=== PATIENT | male | born 1970 | race Caucasian/White ===

== ENCOUNTER 2017-06-10 18:41 | Inpatient (IN) | payer OTHER ==
[~2017-06-10] VITALS: Ht 182.9 cm; Wt 90.6 kg
--- NOTE | ~2017-06-10 | ER ---
PATIENT'S NAME: CÉSAR TURCIOS [facility] AGE: 47 Y [address] ROOM: [place] [address] LOCATION: GPCU ADMIT DATE: 06/10/2017 ER/Outpatient Report DISCHARGE DATE: FAMILY PHYSICIAN: Raheem Scott MD ATTENDING PHYSICIAN: Raheem Scott Time of Arrival: 1842 hours. Time of Evaluation: 1842 hours. CHIEF COMPLAINT: Chest pain. HISTORY OF PRESENT ILLNESS: The patient is a 47-year-old male who presents to the emergency department today with chief complaint of chest pain. He reports that he has not felt good for the past 3 to 4 days. He had some nausea and vomiting. About 6 hours prior to arrival while working in the yard, he developed some chest pain. It is in the center of his chest. He felt like indigestion and burning type pain. He reports some nausea. He did have vomiting x10 over the past few days. He does report some shortness of breath and diaphoresis. He reports pain is currently 8/10 in severity. PAST MEDICAL HISTORY: Seizure, dyslipidemia, hypertension, gastroesophageal reflux disease. PAST SURGICAL HISTORY: Bilateral shoulder surgery, left knee surgery, cholecystectomy. SOCIAL HISTORY: The patient denies any tobacco use. He reports daily alcohol use 3-4 beers a day. Denies any illicit drug use. ALLERGIES: NO KNOWN DRUG ALLERGIES. MEDICATIONS: Please see list. PRIMARY CARE DOCTOR: Raheem Scott MD. REVIEW OF SYSTEMS: All systems are reviewed by myself and are negative with the exception of those discussed in HPI and past medical history. PATIENT'S NAME: CÉSAR TURCIOS [facility] AGE: 47 Y [address] ROOM: [address] [address] LOCATION: GPCU ADMIT DATE: 06/10/2017 ER/Outpatient Report DISCHARGE DATE: FAMILY PHYSICIAN: Raheem Scott MD ATTENDING PHYSICIAN: Raheem Scott PHYSICAL EXAMINATION: VITAL SIGNS: Weight 89.6 kg. Blood pressure 157/100, pulse 120, respiratory rate 18, temperature 96.9, oxygen saturation 98% on room air. GENERAL: The patient is a 47-year-old male, who appears stated age. Well developed, well nourished. HEENT: Normocephalic, atraumatic. Pupils are equal, round, and reactive to light. Mild scleral icterus. Mucous membranes are dry. NECK: Supple. There is no nuchal rigidity. CARDIOVASCULAR: Tachycardic. No murmurs, rubs, or gallops. LUNGS: Clear to auscultation bilaterally. No wheezes, rales, or rhonchi. ABDOMEN: Soft. Does have mild diffuse tenderness to palpation. There is no rebound, rigidity, or guarding. Positive bowel sounds. MUSCULOSKELETAL: The patient moves all 4 extremities. SKIN: Warm and dry. No rashes or lesions noted. LABORATORY DATA AND IMAGING STUDIES: Labs and x-rays are obtained. EKG is obtained, is interpreted by myself at 1849 shows sinus tachycardia with a rate of 114, normal axis, normal interval. No ST elevation. There is ST depression, 0.5 mm in V5-V6. There is nonspecific T-waves. CBC is unremarkable except for hemoglobin 10.3, hematocrit 28.1, platelet 149, bands 25%. PTT is normal. PT is 13.4. INR is 1.27. Venous blood gas 7.50/36/40/28.1/4.8. D-dimer is elevated at 1.66. PTT is 32. PT is 13.4. INR is 1.27. CMP: Sodium 125, potassium 2.8, chloride 80, CO2 24, BUN 55, creatinine 9.1, glucose 135, alkaline phosphatase 350, AST 1373, [place] [address]. Procalcitonin is 45.15. Lipase is 3313. CK is 1574. CK-MB is 8.9. Troponin 5.12. Lactate is 5.4. Alcohol is less than 0.01. Repeat renal function panel shows sodium 127, potassium 2.7, chloride 82, BUN 56, creatinine 9.7. Repeat 2-hour enzymes; CK is 1402, CK-MB is 8.1, troponin 6.94. IMPRESSION: 1. Nft-VG-ptjjqntre myocardial infarction with elevated troponin and abnormal EKG. 2. Severe potomania syndrome with hyponatremia and hypokalemia. 3. Acute renal failure. 4. Acute pancreatitis. 5. Lactic acidosis. 6. Elevated liver enzymes. 7. Chronic alcohol abuse. PATIENT'S NAME: CÉSAR TURCIOS [facility] AGE: 47 Y [address] ROOM: [address] [place] [id number] LOCATION: GPCU ADMIT DATE: 06/10/2017 ER/Outpatient Report DISCHARGE DATE: FAMILY PHYSICIAN: Raheem Scott MD ATTENDING PHYSICIAN: Raheem Scott 8. Elevated D-dimer. 9. Critical care time of 33 minutes. 10. Initial visit. EMERGENCY DEPARTMENT COURSE: The patient brought back to the examination room. Seen and evaluated by myself. IV is established. Laboratory analysis and imaging are obtained as described above. The patient is given aspirin orally. His EKG, laboratory analysis and imaging are returned. The patient is given a liter of normal saline IV bolus. He is given 4 mg Zofran IV. He is given 2 mg of morphine IV. He is given a banana bag 1 L IV. He is given 60 mEq of potassium chloride p.o. He is also given 20 mEq of potassium chloride IV. He is initiated on heparin drip. I have discussed the case with Dr. Callahan, who is on-call for the patient's primary care doctor. He does agree to accept the patient for further evaluation, treatment, and management. I have discussed the case with Dr. Abarca with Cardiology. He has seen and evaluated the patient here in the emergency department. We will place the patient on heparin drip. We have also discussed the case with Dr. Harry. He has seen and evaluated the patient as well. Please see their dictations. The patient did undergo a stat echocardiogram which does show left ventricular EF of 25% to 30% with moderate to severe concentric left ventricular hypertrophy with severe diastolic dysfunction. Repeat cardiac enzymes show CK of 1402, CK-MB of 8.1, troponin 6.94. The patient will be admitted under the care of Dr. Callahan. The patient did require cumulative critical care time of 33 minutes. This did include talking with the patient, talking with multiple consultants, ordering tests, reviewing tests as well as close monitoring with multiple comorbidities and multiple acute issues. DISPOSITION: The patient is admitted under the care of Dr. Callahan and consultation with Dr. Abarca and Piero in stable condition. DO VARUN STOCKTON/modl /[id number] d: 06/11/17 0152 t: 06/11/17 0208, OUTPATIENT REPORT
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
--- NOTE | ~2017-06-10 | CON ---
PATIENT'S NAME: CÉSAR TURCIOS [facility] AGE: 47 Y [address] ROOM: [place] [address] LOCATION: GPCU ADMIT DATE: 06/10/2017 Consultation DISCHARGE DATE: FAMILY PHYSICIAN: Raheem Scott MD ATTENDING PHYSICIAN: Raheem Scott REFERRING PHYSICIAN: Talia Harry COMPLAINT: Bleeding dialysis catheter. HISTORY OF PRESENT ILLNESS: The patient is a 47-year-old male who was admitted with chest pain, pancreatitis, and renal failure. He had had a dialysis catheter placed that has been bleeding overnight. They had tried multiple things to stop this. I have been asked to help control the bleeding. His hemoglobin is 7.3. PAST MEDICAL HISTORY: 1. Anxiety. 2. Hyperlipidemia. 3. Alcohol abuse. PAST SURGICAL HISTORY: 1. Right shoulder surgery. 2. Right knee. 3. Cholecystectomy. SOCIAL HISTORY: . Three children. Currently unemployed. ALLERGIES: NONE KNOWN. CURRENT MEDICATIONS: See current MAR. REVIEW OF SYSTEMS: Denies chest pain or shortness of breath. He has overall been feeling poorly. PHYSICAL EXAMINATION: GENERAL APPEARANCE: A pleasant 47-year-old male. NECK: Reveals a hemodialysis catheter in the right IJ with saturated dressing. HEART: Regular rate and rhythm. LUNGS: Clear to auscultation. ASSESSMENT: Bleeding around dialysis catheter site with elevated PTT. PATIENT'S NAME: CÉSAR TURCIOS [facility] AGE: 47 Y [address] ROOM: [place] [address] LOCATION: GPCU ADMIT DATE: 06/10/2017 Consultation DISCHARGE DATE: FAMILY PHYSICIAN: Raheem Scott MD ATTENDING PHYSICIAN: Raheem Scott PLAN: At this point in time, I discussed with the patient suturing this. I discussed risks, which include bleeding, infection. He understood and wished to proceed. In the exam room, using sterile technique, a 3-0 Prolene suture was placed around the dialysis catheter. This appeared to control the bleeding, and another sterile dressing was placed. He tolerated this well. ABBIE LOVE MD BJO/chantel /[id number] d: 06/12/17 1325 t: 06/24/17 1331, CONSULTATION REPORT
--- NOTE | ~2017-06-10 | CON ---
PATIENT'S NAME: CÉSAR TURCIOS [facility] AGE: 47 Y [address] ROOM: [place] [address] LOCATION: GPCU ADMIT DATE: 06/10/2017 Consultation DISCHARGE DATE: FAMILY PHYSICIAN: Raheem Scott MD ATTENDING PHYSICIAN: Raheem Scott DATE OF CONSULTATION: 06/10/2017 REFERRING PHYSICIAN: Saji Callahan MD FAMILY PHYSICIAN: Raheem Scott MD REASON FOR CONSULTATION: Elevated BUN and creatinine and hyponatremia. HISTORY OF PRESENT ILLNESS: The patient is a 47-year-old white male with no significant past medical history other than some anxiety, depression, and hyperlipidemia. He has a history of drinking alcohol. He reports that over the last 7 to 10 days he has not been feeling well with very poor appetite. He had nausea and vomiting. He also developed abdominal pain. This afternoon, he came in the emergency room with some chest pain. Routine labs showed that his creatinine is 8.7. His creatinine was normal in 2014. He also had low sodium of 125. His potassium was low at 2.8 and his bicarb was 24. The patient did have blood gases, pH of 7.5, pCO2 of 36, and pO2 of 40. I believe this was venous blood. Lactic acid was 5.4. The patient reports that he feels somewhat dizzy and lightheaded at home. He is not known to be hypertensive. Blood pressure has been systolic of 150 and diastolic of 70. The patient had hemoglobin of 10.3. His CPK was 1402 with troponin of 6.9. The patient did have urinalysis, but the result is pending at this time. Liver enzymes were up with AST of 1373 and ALT of 165 with alkaline phosphatase of 350. Lipase level of 3313. ALLERGIES: NO KNOWN DRUG ALLERGIES. MEDICATIONS: He is on diclofenac sodium 50 mg a day. PAST MEDICAL HISTORY: Anxiety, history of panic attack, hyperlipidemia, and alcohol use. PAST SURGICAL HISTORY: Right shoulder surgery, right knee surgery, and cholecystectomy. PATIENT'S NAME: CÉSAR TURCIOS [facility] AGE: 47 Y [address] ROOM: [place] [address] LOCATION: GPCU ADMIT DATE: 06/10/2017 Consultation DISCHARGE DATE: FAMILY PHYSICIAN: Raheem Scott MD ATTENDING PHYSICIAN: Raheem Scott REVIEW OF SYSTEMS: GENERAL: He denies any fever or chills. He is tired. HEENT: Denies any sore throat or sinus congestion. CARDIOVASCULAR: He came in with chest pain, but currently he is chest pain free. RESPIRATORY: He denies any shortness of breath, cough, or wheezing. GI: He has been having nausea, vomiting, and abdominal pain. : Denies any dysuria or frequency. He has had no history of kidney stone, hematuria, or recurrent urinary tract infection. MUSCULOSKELETAL: He has aches and pains all over his body. SKIN: Denies any rash or pruritus. Denies any allergies or hay fever. LYMPHATIC/HEMATOLOGIC: Denies any lymph node enlargement or easy bruising. Denies any heat or cold intolerance. PSYCHIATRIC: Denies any sadness, crying spells, poor concentration, or panic attack. FAMILY HISTORY: No family history of kidney disease or dialysis. SOCIAL HISTORY: He still works as a lara. Currently, he is unemployed. He is going through a divorce and is under a lot of distress. He has three children. PHYSICAL EXAMINATION: GENERAL APPEARANCE: A 47-year-old, white male, lying in the hospital bed, in mild distress. VITAL SIGNS: Afebrile, pulse is 103, systolic blood pressure is 140 and diastolic is 72, and respiratory rate of 18 HEENT: Head is normocephalic. Pupils are round and equal. Normal eyelid and conjunctivae. Oral cavity clear. Dry mucosa. NECK: Trachea central. No thyromegaly. Flat jugular veins. No bruit. HEART: Sounds are audible in all the areas without any gallop or murmur. There is no pericardial rub. The patient has tachycardia. LUNGS: Bilaterally clear to auscultate. No wheeze or rales. ABDOMEN: Slightly distended. Soft with diffuse tenderness. EXTREMITIES: No clubbing or cyanosis. SKIN: No signs of vasculitis. LYMPHATICS: Did not examine lymphatics. NEUROLOGIC: He is alert and grossly nonfocal. HIGHER PSYCHIATRIC FUNCTION: He has normal speech and memory. LABORATORY DATA: Blood work shows glucose of 135, BUN of 55, creatinine of 9.1, sodium 125, potassium 2.8, chloride 80, bicarb 24, and calcium 8.3. AST of 1370, ALT of 165, and alkaline phosphatase of 350. PATIENT'S NAME: CÉSAR TURCIOS [facility] AGE: 47 Y [address] ROOM: [address] [place], [place] [address] LOCATION: GPCU ADMIT DATE: 06/10/2017 Consultation DISCHARGE DATE: FAMILY PHYSICIAN: Raheem Scott MD ATTENDING PHYSICIAN: Raheem Scott ASSESSMENT: 1. Acute kidney injury, most likely this is prerenal in etiology. The patient was having abdominal pain, nausea, and vomiting for the last 7 to 10 days. He has had very poor oral intake. He appears dehydrated. He has been throwing up and has high lipase consistent with acute pancreatitis. 2. Hypokalemia. Hypokalemia is probably due to renal loss of potassium. The patient has vomiting for several days. This is also in loss of hydrogen resulting in bicarbonate urea and potassium is excreted with bicarbonate. The patient also became dehydrated and eventually as a result of renin angiotensin system activation lost potassium in the urine in turn retaining sodium. The patient has developed generalized aches and pains because of hypokalemia. 3. Rhabdomyolysis, probably related to hypokalemia. 4. Alcoholism. 5. Possible alcoholic pancreatitis. 6. Elevated liver enzymes. 7. High anion gap, probably related to hypotension and lactic acidosis. PLAN: I explained to the patient that his kidney function is less than 10% of what it should have been for his age and sex. He is at a high risk of having complications for uremia, but the patient does not have any flapping tremor. No pericardial rub. I think it would be reasonable to manage him conservatively. I will give him intravenous normal saline with 40 mg of potassium per L at a rate of 150 mL an hour. We will check urinalysis and we will repeat his electrolytes in the next couple of hours. The patient also hyponatremic, to check his serum sodium level. Check renal ultrasound. Follow renal function very closely while he is in the hospital. I would like to thank Dr. Callahan for allowing me to participate in this patient's care. M MD ISABELLA LIZARRAGA/charlette /[id number] CC: Raheem Scott MD d: 06/11/17 0037 t: 06/15/17 1106, CONSULTATION REPORT
--- NOTE | ~2017-06-10 | CATH ---
Cardiac Diagnostic Report Demographics Patient Name TAM Yoon Gender Male Date of 1970 Age 47 year(s) Patient Number [id number] Date of Study 06/11/2017 Visit Number [id number] Room Number G[address] [place] [id number] Ht 182.88 cm Wt 90.3 kg Referring Sonia Yoon MD Primary Physician Physician Performing Efstratiou Secondary Physician Physician Castillo Yoon MD Diagnostic Efstratiou Assisting Physician Physician Castillo Yoon MD Interventional Physician Bat Boy/Girl Physician Findings and Conclusions Diagnostic Findings and Conclusion No angiographic CAD Non ischemic cardiomyopathy based on Echo Diagnostic Recommendations Medical treatment Abstinence from Alcohol Procedure Description The patient was brought to the diagnostic cardiac catheterization-EP laboratory in the fasting, non-sedated state. Informed consent was obtained in the written and verbal form after the risks and benefits were explained. The patient had no further questions and agreed to proceed. The planned puncture-incision site(s) were shaved and prepped with ChloraPrep and draped in the usual sterile manner. Conscious sedation, supplemental oxygen, and pain control medications were delivered by a registered nurse under physician guidance. Surface ECG rhythm, blood pressure measurement, and pulse oximetry were monitored throughout the procedure. Arterial access. The access site was infiltrated with lidocaine. The vessel was entered with the Seldinger technique. A sheath was advanced into the vessel and used for catheter placement. Selective left coronary angiography. A catheter was advanced into the left coronary vessel ostium under Fluoroscopic guidance. Contrast was injected by hand. Images were obtained in multiple projections. Selective right coronary angiography. A catheter was advanced into the right coronary vessel ostium under fluoroscopic guidance. Contrast was injected by hand. Images were obtained in multiple projections. Left heart catheterization. A catheter was advanced across the aortic valve to the left ventricle under fluoroscopic guidance. Resting hemodynamics were obtained. Arterial artery hemostasis was achieved. The patient was transferred to a regular nursing floor via cart accompanied by a nurse. The patient left the laboratory in stable condition. Diagnostic Cath Status: Urgent Procedure Procedure Type Diagnostic procedure:Angiography:, Coronary Angios /[facility] Indications: Abnormal enzymes. The procedure was explained in detail to the patient. Risks, complications and alternative treatments were reviewed. Written consent was obtained. Medications Reviewed with Patient prior to Procedure. Angiographic Findings Dominance: Right Cardiac Arteries and Lesion Findings LMCA: Normal (0% Stenosis). LAD: Normal (0% Stenosis). LCx: Normal (0% Stenosis). RCA: Normal (0% Stenosis). Procedure Data Procedure Date Date: 06/11/2017Start: 11:48 AMEnd: 12:05 PM Entry Locations - Retrograde Percutaneous access was performed through the Right Radial artery (Primary location). A 6 Fr sheath was inserted. Hemostasis was successfully obtained using Mechanical Compression. Closure Comments: 13 cc air in r band by [place]. Procedure Medications Order and Administration + + +--------+ + !Time !Medication !Dosage !Route ! + + +--------+ + !06/11/2017 11:43 AM !Heparin (ACC_3) ! !I.V. drip ! + + +--------+ + !06/11/2017 11:48 AM !Versed !1 mg !I.V. ! + + +--------+ + !06/11/2017 11:49 AM !Fentanyl !25 mcg !I.V. ! + + +--------+ + !06/11/2017 11:54 AM !Oxygen !2 l/min !NC ! + + +--------+ + !06/11/2017 12:04 PM !0.9% NaCl ! !I.V. drip ! + + +--------+ + !06/11/2017 12:04 PM !Oxygen ! !NC ! + + +--------+ + Devices Used - A6 Fr. BS JL 3.5 Diag. Catheterwas used for:Left coronary angiography. - A6 Fr. BS JR 4 Diag. Catheterwas used for:Right coronary angiography. Contrast Material - Isovue 65979 ml Fluoroscopy Time: Diagnostic: 3:12 minutes. Total: 3:12 minutes. Fluoroscopy Dose: Diagnostic: 48 mGy. Total: 48 mGy. Estimated Blood Loss: 10 ml. Medical History Allergies - No known allergies. Risk Factors The patient risk factors include:hypercholesterolemia, hypertension, last creatinine: 8.6 mg/dl, creatinine clearance: 13.27 ml/min, dyslipidemia and renal failure currently treated with dialysis. Admission Data Admission Date: 06/10/2017 Admission Time: 10:01 PM Admit Source: Emergency department Insurance Payors: None. Clinical Evaluation Leading to Procedure - The patient's CAD presentation was assessed as: Non-STEMI. - The patient's anginal syndrome during the past two weeks was assessed as: Class IV according to the [place] Cardiovascular Society Classification System (CCS). Anti-anginal medications were prescribed during the past two weeks. The medications are: Beta Blockers and Other. - The patient has been in a state of heart failure within the past two weeks. - The patient's heart failure status was assessed as NYHA Class IV, with CHF symptoms of MILLER. 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 Snapshots Hemodynamics Condition: Rest O2 Consumption: Estimated: 289.68Heart Rate: 113 bpm Pressures (mmHg) +-----+ + !Site !Pressure ! +-----+ + !LV !104/-26 ,6 ! +-----+ + !LV !105/6 ,13 ! +-----+ + !LV !105/6 ,14 ! +-----+ + !AO !/74 (87) ! +-----+ + !LV !/7 ,15 ! +-----+ + !AO !/ (88) ! +-----+ + Valve Gradients and Areas + +---------+---------+---------+ +---------+ + !Valve !Peak !Mean !Area !Index !Flow !Source ! + +---------+---------+---------+ +---------+ + !Aortic !0 !0 ! ! ! ! ! + +---------+---------+---------+ +---------+ + !Aortic !0 !0 ! ! ! ! ! + +---------+---------+---------+ +---------+ + Shunts Oxygen Values O2 Capacity 118.32 O2 Consumption 289.68 Signatures dtt: Isai Abarca dtd: 06/11/17 1148 Physician Self Edit
--- NOTE | ~2017-06-10 | DS ---
PATIENT'S NAME: CÉSAR TURCIOS [facility] AGE: 47 Y [address] ROOM: [address] [place], [place] [address] LOCATION: GPCU ADMIT DATE: 06/10/2017 Discharge Summary DISCHARGE DATE: 06/25/2017 FAMILY PHYSICIAN: Raheem Scott MD ATTENDING PHYSICIAN: Raheem Scott FINAL DIAGNOSES: 1. Acute kidney failure secondary to acute tubular necrosis. 2. Acute liver failure. 3. Coagulopathy secondary to #2. 4. Acute blood loss anemia status post transfusion of 3 units of packed red blood cells. 5. Healthcare acquired pneumonia. 6. Hypertension with hypertensive urgency. 7. 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 8. History of seizures. 9. Prediabetes. 10. Chronic alcohol abuse. 11. Low testosterone. 12. History of gastroesophageal reflux disease. 13. Hyperlipidemia. 14. Nicotine dependence, chewing tobacco. PRINCIPAL PROCEDURES: Left heart catheterization on 06/11/2017, which did not show any significant blockages present and then he had a tunneled dialysis catheter placed on 06/22. He did have transfusion of 3 units of packed red blood cells as well. REASON FOR ADMIT: This is a 47-year-old previously healthy male presented to the emergency room on 06/10 with complaints of chest pain. He had been having nausea and vomiting for a week. He has had abdominal pain in epigastric area and chest discomfort as well. He was subsequently admitted by my partner after being found to be in acute renal failure with BUN of 55 and creatinine 9.1. His troponin was elevated at 5.12, CPK was elevated at 1544, and MB was elevated 8.9, lactic acid was 5.4, procalcitonin level of 45.15. He also had elevated amylase and lipase with lipase of 3313, it was felt that he had pancreatitis. He was initially admitted, had GI and Nephrology see him. GI felt like this was related more to his chronic alcohol use. He downplayed his alcohol use during the entire hospitalization. He states he would drink between 2 to 3 beers a day, but his AST to ALT ratio was significantly elevated during this hospital stay. He had an AST of 1373 and ALT of 165, bilirubin of 5.6 upon admit. He ended up having an MRCP, which did not show any evidence of stone. GI felt like again his liver failure was secondary to his alcohol abuse, we did not end up doing anything further to intervene from PATIENT'S NAME: CÉSAR TURCIOS [facility] AGE: 47 Y [address] ROOM: [address] [place], [place] [address] LOCATION: GPCU ADMIT DATE: 06/10/2017 Discharge Summary DISCHARGE DATE: 06/25/2017 FAMILY PHYSICIAN: Raheem Scott MD ATTENDING PHYSICIAN: Raheem Scott his pancreas and that calmed down nicely. He was actually hungry within a day or 2. He did end up going on acute dialysis. His creatinine fluctuated between 4 to 9 and was actually at a level of 7.7 at the time of discharge. He was anuric for a good chunk of his hospital stay, was starting to make a little bit of urine prior to discharge. Nephrology feels like this may be something that could potentially be recoverable and will continue with acute dialysis in the interim. He did have significant coagulopathy. His platelet count did not look too bad, and his INR was not too bad, but he had significant bleeding from his heart catheterization site as well as from his IV site and his central line site, he ended up getting transfused a total of 3 units of packed red blood cells. At the time of this dictation, his hemoglobin the day prior to discharge was 7, if it is lower than that today, he will get another 2 units before discharge. He had significant hypertension issues with his anuric state and getting dialysis, he had multiple medicines titrated. Cardiology saw him as well and with his elevation of enzymes, he did end up undergoing heart catheterization, which did not show any significant flow limiting lesions. He did have an echo, which showed a dilated cardiomyopathy with ejection fraction of about 25% to 30%. Again this possibly could be alcohol related as well. Cardiology did see him and will continue follow him as an outpatient as well. The morning of June 25 he was feeling a ton better. His bleeding from the site has been well controlled with DDAVP, and it was felt that he was deemed ready for discharge following his dialysis. He will be set up with Wednesday, , and Wednesday outpatient dialysis, [facility] at noon. He will have followup with MARIANA Armenta at the [facility]. He will see him in 1 week, see Dr. Harry in 2 weeks, and Dr. Abarca in 2 weeks. His medication list will include the followin. Amlodipine 5 mg b.i.d. 2. Carvedilol 25 mg b.i.d. 3. Lexapro 10 mg once a day. 4. Hydralazine 25 mg 3 times a day. 5. Lisinopril 5 mg once a day. 6. Protonix 40 mg once a day. 7. Epogen 20,000 international units with dialysis. 8. Percocet 5/325 1 to 2 every 4 hours p.r.n. pain. He will call or come in if he has any further problems or concerns. He voiced understanding of that plan. PATIENT'S NAME: CÉSAR TURCIOS [facility] AGE: 47 Y [address] ROOM: [place] [address] [facility] ADMIT DATE: 06/10/2017 Discharge Summary DISCHARGE DATE: 06/25/2017 FAMILY PHYSICIAN: Raheem Scott MD ATTENDING PHYSICIAN: Raheem Scott MD TAB/modl /[id number] d: 06/25/17718 t: 07/05/17 0835, DISCHARGE SUMMARY
--- NOTE | ~2017-06-10 | CON ---
PATIENT'S NAME: CÉSAR TURCIOS [facility] AGE: 47 Y [address] ROOM: [address] [place], [place] [address] LOCATION: GPCU ADMIT DATE: 06/10/2017 Consultation DISCHARGE DATE: FAMILY PHYSICIAN: Raheem Scott MD ATTENDING PHYSICIAN: Raheem Scott DATE OF CONSULTATION: 06/11/2017 REFERRING PHYSICIAN: Talia Harry REASON FOR CONSULTATION: Pancreatitis, abdominal pain, nausea, and vomiting. HISTORY OF PRESENT ILLNESS: This is a 47-year-old gentleman, who was recently admitted with acute chest pain, lasting approximately an hour prior to presentation. The patient states that he generally has not been feeling good for the past few weeks with associated nausea and vomiting that has been intermittent. He does also complain of some mid-epigastric discomfort that again was intermittent. The patient states that he drinks alcoholic beverages in the amount of 3 beers per day. Per medical record, it appears that he reported he has been without alcohol for 3 days, though upon my questioning he states that he has been without alcohol for 10 days. The patient states that the abdominal pain is located in mid epigastric area, radiates across into the abdomen. Chest pain does not radiate. Does state that he has noticed decrease in appetite at home as well. He denies any problems with his bowel or change in his bowels. He also does report some dizziness and lightheadedness at home. LABORATORY DATA: Workup completed. He was found to have acute renal failure with a creatinine level of 8.7, low sodium of 125, potassium was 2.8, bicarb was 24. Blood gases were also completed. Lactic acid was 5.4. Hemodynamically, the patient does appear stable. Hemoglobin was 10.3, though liver function tests were significantly elevated including an AST of 1373, ALT of 165, alkaline phosphatase of 350, lipase level was also significantly elevated at 3313. The patient was obviously admitted for continued workup. PAST MEDICAL HISTORY: Anxiety, history of panic attack, hyperlipidemia, chronic alcohol use. PAST SURGICAL HISTORY: Right shoulder surgery, right knee surgery, cholecystectomy. He denies any history of upper endoscopy or colonoscopy. SOCIAL HISTORY: The patient is . He has 3 children. Currently unemployed. He does PATIENT'S NAME: CÉSAR TURCIOS [facility] AGE: 47 Y [address] ROOM: [address] [address] LOCATION: GPCU ADMIT DATE: 06/10/2017 Consultation DISCHARGE DATE: FAMILY PHYSICIAN: Raheem Scott MD ATTENDING PHYSICIAN: Raheem Scott admit to drinking "3 beers per day." He reports to me that he has not had any beer for the past 10 days. FAMILY HISTORY: He denies any known gastrointestinal diseases or liver cancers to his knowledge. ALLERGIES: NO KNOWN MEDICATION ALLERGIES. CURRENT MEDICATIONS: Please refer to the medication administration record. REVIEW OF SYSTEMS: All-point review of systems was completed. All were negative except for those identified in the history of present illness. PHYSICAL EXAMINATION: GENERAL: A pleasant 47-year-old gentleman, lying in bed, who appears to be in no acute distress. VITAL SIGNS: Temperature 97.8, pulse of 110, respirations of 16, blood pressure 145/95, and oxygen saturation is 93% on room air. SKIN: Icteric, warm, dry. HEENT: Head is normocephalic and atraumatic. Pupils are equal, round, and reactive. Sclerae are icteric. Oral mucosa is dry and slightly icteric as well. NECK: Soft and supple. CARDIOVASCULAR: Normal S1, S2. RESPIRATORY: Respirations even and unlabored. LUNGS: Clear to auscultation. ABDOMEN: Slightly distended. Diffuse tenderness throughout. No rebound, rigidity, or guarding noted. MUSCULOSKELETAL: No muscle weakness or atrophy. EXTREMITIES: No edema. NEUROLOGICAL: The patient is alert and grossly nonfocal. LABORATORIES AND DIAGNOSTICS: Blood work shows a glucose of 135, BUN of 55, creatinine 9.1, sodium 125, potassium of 2.8, chloride of 80, bicarb of 24, calcium of 8.3. The patient's liver function tests are significantly elevated with an AST of 1592, ALT of 173, alkaline phosphatase of 307, total bilirubin is 5.1, down from 5.6. Cardiac enzymes have been abnormal with a troponin of 13.6, BNP of 13,899, CPK of 1424. Amylase was also completed 125, lipase was 33,313 on admission as PATIENT'S NAME: CÉSAR TURCIOS [facility] AGE: 47 Y [address] [address] [facility] ADMIT DATE: 06/10/2017 Consultation DISCHARGE DATE: FAMILY PHYSICIAN: Raheem Scott MD ATTENDING PHYSICIAN: Raheem Scott. ASSESSMENT AND PLAN: Again, this is a 47-year-old gentleman, who was recently admitted with acute renal failure, chest pain with elevated cardiac enzymes as well as pancreatitis. 1. Pancreatitis, likely induced secondary to alcohol. Lipase has been elevated. We recommend at this point, the patient is n.p.o. with IV hydration properly. 2. Cardiac enzymes elevation and chest pain. The patient is scheduled to undergo heart catheterization for evaluation of the patient's abnormal cardiac enzymes per Cardiology today. Further recommendations after this is completed. 3. Acute renal failure per Nephrology. The patient is scheduled to undergo acute dialysis post heart catheterization today. 4. History of alcoholism. The patient will need complete liver workup in lieu of his history. Currently, hepatitis A, B, and C are all pending workup at this time. Again, we will wait for complete workup to be completed by Cardiology and Nephrology. We will continue to work with this patient, as well as with the medical team for the patient's medical state at this point. Further recommendations to be given per Dr. Carolann Meléndez and status heart catheterization and acute dialysis. Thank you for this consult. HYACINTH SAENZ APRN FOR MD MENG MUHAMMAD/modl /[id number] d: 06/11/172019 t: 07/05/17 1205, CONSULTATION REPORT
--- NOTE | ~2017-06-10 | CON ---
PATIENT'S NAME: CÉSAR TURCIOS [facility] AGE: 47 Y [address] ROOM: [id number] [place], [place] [address] LOCATION: GPCU ADMIT DATE: 06/10/2017 Consultation DISCHARGE DATE: FAMILY PHYSICIAN: Raheem Scott MD ATTENDING PHYSICIAN: Raheem Scott REFERRING PHYSICIAN: Talia Harry HISTORY OF PRESENT ILLNESS: This is a 47-year-old man who came to the emergency room yesterday because he did not feel well, and he was found to have enormous metabolic abnormalities including findings of acute kidney injury, pancreatitis, abnormal liver enzymes, and an elevated troponin. The patient was also tachycardic and complained of some chest pain. So, I was asked to see him while he was being evaluated by the emergency room physician. Because of the abnormal creatinine, I elected not to take the patient directly to the catheterization laboratory. Instead, we did start echocardiogram that reveals that he has a decreased ejection fraction in the 25% to 30% range. Since then, the patient was admitted, and overnight, his troponin increased up to a level of 10. He was placed on intravenous heparin. He tells me that he had substernal chest pain last night in addition to right shoulder pain, which is another of his chronic problems. Past medical history is complicated and also incomplete because I do not think the patient is forthcoming or admits all his problems. I did go through all the old medical records on [facility]. The patient has been to this hospital on 3 occasions in 2016 when he had 3 seizures. Although he himself described the seizures as being mild, actually the records indicate that he did bite his tongue during the first episode, and witnesses say that he had tonic-clonic movements. He has a history of alcohol use that he downplays to me, tells me that it is 3 to 4 beers a day, and he is not interested to go to any program as he does not think he has an alcohol problem. There is no history to correlate these seizures with alcohol abstinence. The first episode occurred at work while he was talking to the commercial representative of [employer]. 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 Currently, he is unemployed. The other 2 episodes occurred at home. On all 3 occasions, he was evaluated in the emergency room. Dr. Cardenas has been consulted and recommended Tara; however, when he arrived yesterday to the emergency room, the only medication on his list was diclofenac. He was seen by Dr. Marcano during the first seizure episode. At that point, supposedly, he was on several antihypertensives as well as atorvastatin. One note by Dr. Scott, who is his regular doctor in [facility], indicates that he has some diagnosis of coronary artery disease without further details. The patient also sees doctors at the [facility] where he is being treated for anxiety. He denies history to me history of heart attack, cerebrovascular accident, or heart failure. SOCIAL HISTORY: PATIENT'S NAME: CÉSAR TURCIOS [facility] AGE: 47 Y [address] ROOM: [place] [address] [facility] ADMIT DATE: 06/10/2017 Consultation DISCHARGE DATE: FAMILY PHYSICIAN: Raheem Scott MD ATTENDING PHYSICIAN: Raheem Scott He is and has joint custody of 3 children; the oldest just left for college. There are 2 teenage sons who live in house. He chews tobacco, but does not smoke. Alcohol use was discussed. Drug use, he denies. PAST SURGICAL HISTORY: Cholecystectomy in the year [address] Scott's note, and has 4 shoulder surgeries, two on each side, and history of knee surgery. FAMILY HISTORY: Positive for hypertension. PHYSICAL EXAMINATION: GENERAL: He is a middle-aged man who is alert and oriented. He is 6 feet and weighs 90.3 kg. VITAL SIGNS: Heart rate 107 and blood pressure 130/85. HEENT: He has jaundice. He has no xanthelasma. SKIN: Warm and dry. NECK: Supple. No obvious jugular venous distention. HEART: Regular gallop rhythm. LUNGS: Clear. ABDOMEN: Mildly obese. LOWER EXTREMITIES: No peripheral edema. DIAGNOSTIC DATA: His electrocardiogram shows sinus tachycardia with mild repolarization changes. Since his admission, the patient had insertion of a temporary dialysis catheter in the right internal jugular vein. Last troponin is. 10.9, CK-MB 7.4, and CPK 1449. First troponin was 6.9. D-dimer is 1.6. Procalcitonin is 45. BUN 59 and creatinine 8.6. AST 1592 and ALT 173. Bilirubin 5.1. Amylase 125 [place] 2862[place] [address]. IMPRESSION: The patient appears to have a non-ST elevation myocardial infarction, cardiomyopathy off unknown etiology, acute kidney injury, hepatitis, pancreatitis, possible alcoholism. PLAN: I will take him to the prosthetics lab technician and do at least a limited coronary angiogram intervention according to the anatomy and then he will follow his dialysis. There are multiple consultants addressing his other issues. Thank you for allowing me to participate in the care of your patient. PATIENT'S NAME: CÉSAR TURCIOS [facility] AGE: 47 Y [address] ROOM: [place] [address] [facility] ADMIT DATE: 06/10/2017 Consultation DISCHARGE DATE: FAMILY PHYSICIAN: Raheem Scott MD ATTENDING PHYSICIAN: Raheem Scott PANAYOTIS-VENKAT COLLINS MD PE/modl /[id number] d: 06/11/17 1230 t: 06/14/17 1109, CONSULTATION REPORT
--- NOTE | ~2017-06-10 | OR ---
PATIENT'S NAME: CÉSAR TURCIOS [facility] AGE: 47 Y [address] ROOM: [place] [address] LOCATION: GPCU ADMIT DATE: 06/10/2017 OR/Procedure Report DISCHARGE DATE: FAMILY PHYSICIAN: Raheem Scott MD ATTENDING PHYSICIAN: Raheem Scott SURGEON: Joss Barboza MD JIVE DEVELOPER: DATE OF PROCEDURE: 06/11/2017 PREOPERATIVE DIAGNOSIS: Acute renal failure. PROCEDURE: Placement of 16 cm triple-lumen acute dialysis temporary catheter via the right internal jugular vein, using ultrasound-guided vein access. ANESTHESIA: Local. PROCEDURE IN DETAIL: The patient's right neck was prepped and draped. Using a sterile ultrasound probe and cover, the internal jugular vein was visualized. The skin overlying it was numbed with 1% lidocaine and then a 19- gauge needle was passed into the vein, single wall technique using ultrasound guidance. A J-tipped guidewire was passed centrally and the needle removed. The skin was opened slightly with an 11 scalpel blade, the tract was dilated up, and a 16-Kiswahili triple-lumen [place]urkar catheter was passed to this 15 cm levar. The ports were aspirated and flushed well and were capped. The catheter was secured to the skin with a 2-0 nylon and a sterile dressing was applied. The patient tolerated the procedure well. MD BIANCA THAKKAR/modl /[id number] d: 06/11/17 1124 t: 06/12/17 0946, OPERATIVE SUMMARY
--- NOTE | ~2017-06-10 | ECHO ---
Transthoracic Echocardiography Report (TTE) Demographics Patient Name CÉSAR TURCIOS Date of Study 06/10/2017 Patient Number [id number] Visit Number [id number] Date of 1970 Room Number Gender Male Number Age 47 year(s) Referring Anai Masterson Subway Train Operator Mikael Wiley RVT Physician Physician Interpreting Rima Chong Modeling Agency Manager Physician A MD Supervising Ordering Rima Chong MD/MLP Physician A Nurse Stress Satellite Installation Technician Conclusions Contractility Score Summary Summary The estimated left ventricular ejection fraction is 25-=30%. Moderate to severe concentric left ventricular hypertrophy. Restrictive filling pattern (severe diastolic dysfunction). Procedure Type of Study TTE procedure:2D Echocardiogram. Procedure Date Date: 06/10/2017 Start: 08:19 PM Study Location: ER Technical Quality: Adequate visualization Indications:Elevated Troponin. Appropriate Use Criteria: 9 Patient Status: STAT HR: 107 bpm M-Mode/2D Measurements LV Diastolic Dimension: 4.53 cm LV Systolic Dimension: 4.08 cm LV Septum Diastolic: 1.88 cm LV PW Diastolic: 1.7 cm AO Root Dimension: 2.7 cm Cardiac Output: 4.37 l/min AV Cusp Separation: 2.5 cm RV Diastolic Dimension: 2.95 cm LA Dimension: 4.1 cm LVOT: 2.1 cm RV Base: 2.6 cm LVOT VTI: 11.8 cm RV Mid: 3.51 cm LV Stroke volume: 40.85 ml RV Length: 7 cm TAPSE: 1.7 cm TDI-S': 13.7 cm/s Doppler Measurements AV Peak Velocity: 1.26 m/s MV Peak E-Wave: 1.4 m/s AV Peak Gradient: 6.35 mmHg AV Mean Gradient: 4 mmHg MV P1/2t: 47 msec LVOT Peak Velocity: 0.72 m/s TR Velocity:2.12 m/s PV Peak Velocity: 0.95 m/s TR Gradient:17.98 mmHg PV Peak Gradient: 3.59 mmHg A' Septal Velocity: 0.11 m/s E' Septal Velocity: 0.03 m/s Findings Left Ventricle Moderate to severe concentric left ventricular hypertrophy. Restrictive filling pattern (severe diastolic dysfunction). Right Ventricle Mildly dilated right ventricle. Normal right ventricular systolic performance. Left Atrium Normal left atrial size. Right Atrium Normal right atrial size. IVC not visualized due to poor subcostal window. Mitral Valve Mild mitral annular calcification. Trivial mitral regurgitation by color Doppler. Aortic Valve Normal aortic valve structure and function. Tricuspid Valve Mild tricuspid regurgitation by color Doppler. Pulmonic Valve Normal pulmonic valve structure and function. Pericardial Effusion No evidence of pericardial effusion. Miscellaneous Visualized portions of the aortic root and ascending aorta appear normal in size. Pleural Effusion No evidence of pleural effusion. Signature dtt: Isai Abarca dtd: 06/10/17 2019 Physician Self Edit
--- NOTE | ~2017-06-10 | HP ---
PATIENT'S NAME: CÉSAR TURCIOS [facility] AGE: 47 Y [address] ROOM: [place] [address] LOCATION: GPCU ADMIT DATE: 06/10/2017 History & Physical DISCHARGE DATE: FAMILY PHYSICIAN: Raheem Scott MD ATTENDING PHYSICIAN: Raheem Scott DATE OF SERVICE: CHIEF COMPLAINT: 1. Chest pain. 2. Abdominal pain. 3. Nausea and vomiting. HISTORY OF PRESENT ILLNESS: The patient is a 47-year-old male who developed chest pain approximately 1 p.m. this afternoon. The patient states he has had nausea and vomiting for approximately a week. The patient states he has not had any alcohol for three days. The patient states that he has abdominal pain that is mid epigastric and radiates across his abdomen. The patient states his chest pain does not radiate. The patient denies any headaches, shortness of breath, diarrhea, constipation, hematuria, rash, or fever. PAST MEDICAL HISTORY: 1. Nicotine dependence, chewing tobacco. 2. Gastroesophageal reflux disease. 3. Hyperlipidemia. 4. Hypertension. 5. Hypertriglyceridemia. 6. Low testosterone. 7. Pre-diabetes. PAST SURGICAL HISTORY: 1. Cholecystectomy. 2. Echocardiogram. 3. Knee surgery. 4. Shoulder surgery. ALLERGIES: SYMBICORT. MEDICATIONS: Please see list. SOCIAL HISTORY: The patient states he does drink alcohol some days but has not drank in three PATIENT'S NAME: CÉSAR TURCIOS [facility] AGE: 47 Y [address] ROOM: [place] [address] LOCATION: GPCU ADMIT DATE: 06/10/2017 History & Physical DISCHARGE DATE: FAMILY PHYSICIAN: Raheem Scott MD ATTENDING PHYSICIAN: Raheem Scott. The patient does do chewing tobacco and used to smoke but no longer does. FAMILY HISTORY: Significant for hypertension. REVIEW OF SYSTEMS: A complete review of systems was obtained, pertinent positives and negatives as mentioned in the HPI. OBJECTIVE: VITAL SIGNS: Temperature 96.9, pulse 120, respirations 18, blood pressure 157/100. GENERAL: The patient is alert and oriented. Appears in no acute distress. HEENT: Head; normocephalic, atraumatic. Eyes, conjunctivae clear. No scleral icterus. Mouth; oropharynx grossly moist and patent. No lesion or exudates. NECK: Supple. No lymphadenopathy or thyromegaly. HEART: Regular rate and rhythm. LUNGS: Clear to auscultation bilaterally. ABDOMEN: Tender to palpation across epigastric and upper quadrant region. No rebound or guarding. EXTREMITIES: No cyanosis, clubbing, or edema. VASCULAR: Pulses +2 and equal bilaterally. SKIN: No rash or lesions. LYMPHATICS: No lymphadenopathy. NEURO: Cranial nerves 2 through 12 grossly intact. LABORATORY DATA: Lab shows a sodium of 125, potassium of 2.8, chloride of 80, BUN of 55, creatinine of 9.1, sugar of 135, calcium of 8.3, and a magnesium of 1.8. Alcohol is negative. Lipase is 3313. White blood cell count was normal at 6.3 and hemoglobin is 10.3. CPK is 1544, CK-MB is 8.9, troponin is 5.12. BNP is 11,450 with an elevated D-dimer of 1.66 and a lactate of 5.4 and procalcitonin of 45.15. CT is still pending, and EKG showed ST depression. ASSESSMENT: 1. Chest pain with elevated cardiac enzymes and EKG changes. 2. Pancreatitis. 3. Acute renal failure with baseline creatinine of 0.79 and a GFR greater than 60. 4. Hypokalemia. 5. Hyponatremia. PATIENT'S NAME: CÉSAR TURCIOS [facility] AGE: 47 Y [address] ROOM: [place] [address] LOCATION: [facility] ADMIT DATE: 06/10/2017 History & Physical DISCHARGE DATE: FAMILY PHYSICIAN: Raheem Scott MD ATTENDING PHYSICIAN: Raheem Scott 6. Anemia. 7. Elevated fasting glucose. 8. Hypertension. 9. Gastroesophageal reflux disease. 10. Nausea and vomiting. 11. Elevated BNP. 12. Elevated D-dimer. PLAN: Cardiology has been consulted and echocardiogram is currently being performed. We will trend out enzymes and follow cardiac's lead . We will also monitor his BNP. For the patient's pancreatitis, we will make him n.p.o. and we will do fluid hydration and also monitor his electrolytes and replace them. Nephrology has been consulted for his acute renal failure and electrolytes, as we will replace his sodium and potassium and monitor. The patient's anemia will also be monitored as well as glucose. The patient's hypertension will also be monitored, and we will continue to treat his GERD and also his nausea with Zofran. The patient has elevated D-dimer and is currently on heparin, and we will get a V/Q scan in the morning. We will also monitor for any signs of withdrawal. MD JESUS JEAN/charlette /[id number] D: [id number] T: [id number] HISTORY & PHYSICAL
--- NOTE | ~2017-06-10 | PUL ---
PATIENT'S NAME: CÉSAR TURCIOS [facility] AGE: 47 Y [address] ROOM: [address] [address] LOCATION: GPCU ADMIT DATE: 06/10/2017 Pulmonary DISCHARGE DATE: FAMILY PHYSICIAN: Raheem Scott MD ATTENDING PHYSICIAN: Raheem Scott NAME OF PROCEDURE: Bedside Spirometry DATE OF PROCEDURE: June 13, 2017 REASON FOR EXAM: Shortness of breath RESULTS: Spirometry reveals decreased FVC at 2.92 which is 54% predicted, decreased FEV1 at 2.52 which is 60% predicted, normal FEV1/FVC ratio at 86%. The flow volume loop revealed that there was not a good effort by the patient, there was no significant post bronchodilator response. PHYSICIAN INTERPRETATION: This spirometry is suggestive of restrictive lung disease, full PFT is warranted for lung volume evaluation. MD ADIEL PAREKH/stevo /[id number] dtt: 06/29/172099 Cecy George S. dtd: 06/24/17 1120
[~2017-06-10 18:41] MED LIST: AMBIEN10 MG PO; BYSTOLIC20 MG PO; FELODIPINE ER10 MG PO; LIPITOR80 MG PO; LOTENSIN40 MG PO; PRILOSEC20 MG PO
[2017-06-10 18:59] LABS: BICARBONATE 28.1 mmol/L (18.0-23.0); PCO2 36 mmHg (35-45)
[2017-06-10 19:00] LABS: HEMATOCRIT 28.1 % (37.0-53.0); HEMOGLOBIN 10.3 g/dL (12.0-17.0); MCH 33.9 pg (27.0-34.0); MCHC 36.7 gm/dL (32.0-36.5); MCV 92.4 fl (83.0-98.0); MPV 11.1 fl (9.4-12.4); PLATELET COUNT 149 K/uL (150-450); PO2 40 mmHg (80-90); RBC 3.04 M/uL (4.00-6.00); WBC 6.3 K/uL (4.0-11.0)
[2017-06-10 19:10] LABS: INR - (THERAPEUTIC) 1.27 (0.92-1.07); PROTIME 13.4 SECONDS (9.8-11.4); PTT 32 SECONDS (25-32)
[2017-06-10 19:24] LABS: ALBUMIN 3.2 gm/dL (3.5-5.0); ALK PHOS 350 IU/L (33-138); ALT 165 IU/L (12-78); CALCIUM 8.3 mg/dL (8.5-10.5); CO2 24 mMol/L (22-32); SODIUM 125 mMol/L (135-145); TOTAL BILIRUBIN 5.6 mg/dL (0.0-1.5); TOTAL PROTEIN 7.9 g/dL (6.0-8.4)
[2017-06-10 19:28] LABS: BANDED NEUTROPHIL # 1.6 K/uL (0.0-0.1); BANDED NEUTROPHILS % 25 %; LYMPHOCYTE # 0.5 K/uL (0.8-4.0); LYMPHOCYTE % 8 %; MONOCYTE # 0.5 K/uL (0.0-1.0); SEGMENTED NEUTROPHIL # 3.5 K/uL (1.4-9.0); SEGMENTED NEUTROPHIL % 55 %
[2017-06-10 19:33] LABS: ANION GAP 23.8 (10.0-19.0); AST 1373 IU/L (10-40); BLOOD UREA NITROGEN 55 mg/dL (6-24); CHLORIDE 80 mMol/L (96-110); CPK 1574 IU/L (35-332); CREATININE 9.1 mg/dL (0.6-1.3); MAGNESIUM 1.8 mg/dL (1.8-2.6); POTASSIUM 2.8 mMol/L (3.7-5.1)
[2017-06-10 20:30] LABS: ANION GAP 20.7 (10.0-19.0); CALCIUM 7.7 mg/dL (8.5-10.5); CREATININE 8.7 mg/dL (0.6-1.3); PHOSPHORUS 4.9 mg/dL (2.5-4.9); POTASSIUM 2.7 mMol/L (3.7-5.1)
[2017-06-10] MEDS ORDERED: VOLTAREN50 MG PO (23:43)
[2017-06-11 00:21] LABS: ALBUMIN 2.8 gm/dL (3.5-5.0); ANION GAP 19.5 (10.0-19.0); CALCIUM 7.3 mg/dL (8.5-10.5); CREATININE 8.4 mg/dL (0.6-1.3); PHOSPHORUS 4.2 mg/dL (2.5-4.9); POTASSIUM 3.5 mMol/L (3.7-5.1)
--- NOTE | 2017-06-11 02:22 | NUR ---
2300: ADMITTED TO PCU FROM ER WHERE HE WAS ADMITTED FROM HYPONATREMIA, PANCREATITIS AND CHEST PAIN. HE WAS ADMITTED TO FLOOR WITH HEPARIN INFUSING, NS AT 150ML/HR AND NS WITH 40KCL AT 150ML/HR. PT IS ALSO IN ACUTE RENAL AILURE. HE IS A&O X3. HAVING UPPER MIDDLE ABD PAIN. DID HAVE N/V PRIOR TO ADMISSION. MIKE AND DR. MESA SAW HIM IN ER.
[2017-06-11 03:52] LABS: HEMATOCRIT 24.4 % (37.0-53.0); HEMOGLOBIN 8.7 g/dL (12.0-17.0); MCH 33.7 pg (27.0-34.0); MCHC 35.7 gm/dL (32.0-36.5); MCV 94.6 fl (83.0-98.0); MPV 10.4 fl (9.4-12.4); PLATELET COUNT 137 K/uL (150-450); RBC 2.58 M/uL (4.00-6.00); RDW-CV 21.2 % (11.9-14.6); WBC 7.1 K/uL (4.0-11.0)
[2017-06-11 04:17] LABS: ALBUMIN 2.8 gm/dL (3.5-5.0); ANION GAP 20.7 (10.0-19.0); PHOSPHORUS 3.7 mg/dL (2.5-4.9); POTASSIUM 3.7 mMol/L (3.7-5.1); TOTAL BILIRUBIN 5.1 mg/dL (0.0-1.5); TOTAL PROTEIN 7.1 g/dL (6.0-8.4)
[2017-06-11 04:18] LABS: CALCIUM 7.2 mg/dL (8.5-10.5); CREATININE 8.6 mg/dL (0.6-1.3)
[2017-06-11 04:47] LABS: BANDED NEUTROPHIL # 1.2 K/uL (0.0-0.1); BANDED NEUTROPHILS % 17 %; LYMPHOCYTE # 0.9 K/uL (0.8-4.0); LYMPHOCYTE % 12 %; MONOCYTE # 0.1 K/uL (0.0-1.0); SEGMENTED NEUTROPHIL # 4.8 K/uL (1.4-9.0); SEGMENTED NEUTROPHIL % 68 %
--- NOTE | 2017-06-11 05:15 | NUR ---
Significant Event: ADMITTED FROM ER WITH PANCREATITIS, CHEST PAIN AND HYPONATREMIA. CURRENTLY ON HEPARIN GTT AT 800 UNITS/HR. NS WITH 40KCL IS INFUSING AT 150ML/HR. BLADDER SCANNED AT 0415 AND ZERO WAS IN HIS BLADDER. PT STATES HE FEELS WAY BETTER THAN WHEN HE CAME IN. HR IS STILL TACHY IN THE LOW 100s. REMAINS ON ROOM AIR. MORPHINE GIVEN X2 FOR UPPER ABD PAIN. PT NOT ABLE TO SLEEP AT ALL. Follow up:
--- NOTE | 2017-06-11 16:09 | NUR ---
Significant Event: A/O X 3. INDEPENDENT TO BR. UPPER EPIGASTRIC/RT.SIDED ABD. PAIN. MORPHINE IV WITH RELIEF. AFEBRILE. HR SINUS TACH 110. [id number]. PT. JAUNDICE/SKIN AND SCLERA. HAS LT. AND RT. FA IV SITES. TEMPORARY DIALYSIS CATH PLACED RT. NECK. HEART CATH TODAY. THEN DIALYSIS. 02 SATS ROOM AIR: 93%. NO RESP. DISTRESS NOTED. CARD.ENZ, BNP, CRET, BUN ALL ELEVATED. LOW GFR OF 7. ANYLASE/LIPASE ELVATED. LIVER ENZ. ELEVATED. Follow up: AWAIT PT. TO RETURN TO FLOOR FROM PROCEDURES.
[2017-06-11 17:40] LABS: HEMOGLOBIN 8.3 g/dL (12.0-17.0)
[2017-06-11 17:57] LABS: ANION GAP 14.5 (10.0-19.0); POTASSIUM 3.5 mMol/L (3.7-5.1)
[2017-06-11 17:59] LABS: CALCIUM 7.3 mg/dL (8.5-10.5); CREATININE 3.4 mg/dL (0.6-1.3)
--- NOTE | 2017-06-11 18:47 | NUR ---
Significant Event: RETURNED FROM INSIDE BARREL LATHE OPERATOR. A/O X 3. MORPHINE IV 1 MG FOR C/O PAIN RT. UPPER QUAD/EPIGASTRIC AREA. WITH RELIEF. PT. HAS BEEN OFF PCU FLOOR SINCE 1120, FOR HEART CATH THEN DIALYSIS THEN VQ SCANNING. RT. RADIAL SITE, R-BAND REMOVED. SITE OOZING. RT. JUGULAR CENTRAL DIALYSIS LINE SITE OOZING WELL. OFF HEPARIN GTT. Follow up: CONT. TO MONITER PT. CONDITION
[2017-06-12 05:33] LABS: HEMATOCRIT 21.6 % (37.0-53.0); MCV 98.2 fl (83.0-98.0); MPV 10.8 fl (9.4-12.4); PLATELET COUNT 112 K/uL (150-450); WBC 5.6 K/uL (4.0-11.0)
[2017-06-12 05:40] LABS: HEMOGLOBIN 7.3 g/dL (12.0-17.0); MCH 33.2 pg (27.0-34.0); MCHC 33.8 gm/dL (32.0-36.5); RDW-CV 23.3 % (11.9-14.6)
[2017-06-12 05:55] LABS: ALBUMIN 2.2 gm/dL (3.5-5.0); TOTAL BILIRUBIN 5.5 mg/dL (0.0-1.5); TOTAL PROTEIN 6.2 g/dL (6.0-8.4)
[2017-06-12 05:58] LABS: CALCIUM 7.1 mg/dL (8.5-10.5)
--- NOTE | 2017-06-12 07:04 | NUR ---
Significant Event: Patient is alert and oriented x 3. VSS on room air. Up independently in room. NPO. Morphine given for pain last at 0209. Right forearm IV with 1/2 NS with 20 meq of KCL with Sodium Bicarb running at 75 ml/hr. Left forearm IV, saline locked. Right IJ diaylsis catheter. Site has been oozing. MD called and aware. Pressure applied and dressing changed x 2. Right radial heart cath site. No hematoma, soft, nontender. Hgb was 7.3 this am, MD called. To type and cross and tranfuse 2 units of PRBCs. Patient is pleasant and cooperative with cares. Follow up: To transfuse 2 units of PRBCs. call person surgeon to come place suture to right IJ diaylsis catheter.
[2017-06-12 07:05] LABS: ABSOLUTE NEUTROPHIL CT (ANC) 4.2 K/uL (1.4-9.0); BANDED NEUTROPHIL # 0.1 K/uL (0.0-0.1); BANDED NEUTROPHILS % 2 %; LYMPHOCYTE # 0.5 K/uL (0.8-4.0); LYMPHOCYTE % 9 %; MONOCYTE # 0.7 K/uL (0.0-1.0); SEGMENTED NEUTROPHIL # 4.1 K/uL (1.4-9.0); SEGMENTED NEUTROPHIL % 73 %
[2017-06-12 18:08] LABS: HEMOGLOBIN 9.7 g/dL (12.0-17.0)
[2017-06-12 18:15] LABS: HEMATOCRIT 27.5 % (37.0-53.0)
--- NOTE | 2017-06-12 19:07 | NUR ---
PATIENT HAD STITCH PLACED TO DIALYSIS LINE D/T BLEEDING FROM SITE. PATIENT TRANSFERED TO RADIOLOGY FOR CT ABD/PELVIS THEN TO DIALYSIS. PATIENT REFUSED MRI, DR SINCLAIR NOTIFIED OF THIS.
[2017-06-13 04:34] LABS: HEMATOCRIT 26.2 % (37.0-53.0); HEMOGLOBIN 9.2 g/dL (12.0-17.0); MCHC 35.1 gm/dL (32.0-36.5); MCV 94.9 fl (83.0-98.0); MPV 10.5 fl (9.4-12.4); RDW-CV 24.1 % (11.9-14.6); WBC 9.4 K/uL (4.0-11.0)
[2017-06-13 04:35] LABS: MCH 33.3 pg (27.0-34.0); PLATELET COUNT 135 K/uL (150-450); RBC 2.76 M/uL (4.00-6.00)
[2017-06-13 04:56] LABS: ALBUMIN 2.4 gm/dL (3.5-5.0); ANION GAP 19.3 (10.0-19.0); CALCIUM 7.5 mg/dL (8.5-10.5); POTASSIUM 4.3 mMol/L (3.7-5.1); TOTAL PROTEIN 6.9 g/dL (6.0-8.4)
[2017-06-13 04:57] LABS: CREATININE 4.4 mg/dL (0.6-1.3); TOTAL BILIRUBIN 6.8 mg/dL (0.0-1.5)
[2017-06-13 05:34] LABS: ABSOLUTE NEUTROPHIL CT (ANC) 7.1 K/uL (1.4-9.0); BANDED NEUTROPHIL # 0.9 K/uL (0.0-0.1); BANDED NEUTROPHILS % 10 %; LYMPHOCYTE % 11 %; MONOCYTE # 1.1 K/uL (0.0-1.0); SEGMENTED NEUTROPHIL # 6.1 K/uL (1.4-9.0); SEGMENTED NEUTROPHIL % 65 %
--- NOTE | 2017-06-13 05:39 | NUR ---
Significant Event: Patient alert and oriented x3. Vital signs stable. On RA-2L. Lungs sounds coarse throughout. Right IJ dialysis line continues to ooze. Dressing changed x1 with manual pressure x10 mins and surgi seal applied. Sandbag later applied when dressing continued to ooze. Reinforced x2. Morphine given x1 for complaints of abdominal pain with relief. Up ad mayi in room. Continues NPO. No urine output. Calm and cooperative with all cares. Follow up: Will continue to monitor bleeding status.
[2017-06-13 09:52] LABS: INR - (THERAPEUTIC) 1.36 (0.92-1.07); PROTIME 14.3 SECONDS (9.8-11.4)
--- NOTE | 2017-06-13 15:57 | NUR ---
Significant Event: A/O x3, cooperative with cares. VSS, SBPs 130-140s, DBPs 100s HRs 80s, on room air. 1 tab of [place] given x1 this AM for c/o upper abd pain; relief noted. I/D of zyvox et zosyn given this shift. Dressing change to R) radial cath site x2, d/t oozing; Dr. Scott aware patient is oozing from multiple areas. Tolerating a clear liquid diet; may advance as tolerated et needs to be on a 1800 ml FR. Up in room ad mayi. Follow up:
--- NOTE | 2017-06-13 17:30 | NUR ---
Pt had norco at 1600 for mid abd pain rated at 4. No further drainage on Rt wrist/hand dressing applied about 1500 for oozing. States it feels better with less "tightness". Old drng Rt jugular dialysis cath site under tegaderm. Need sputum culture. Up ad mayi in room earlier and now dozing
--- NOTE | 2017-06-13 18:39 | NUR ---
Rt jugular gauze reinforced dressing has bloody drng and clot under tegaderm. Has increased since 1600. Gauze dressings and tegaderm clotting dressings removed and new clotting tegaderm dressing applied. No noted active bleeding at this time.
[2017-06-14 04:31] LABS: HEMATOCRIT 26.2 % (37.0-53.0); HEMOGLOBIN 9.1 g/dL (12.0-17.0); MCH 32.9 pg (27.0-34.0); MCHC 34.7 gm/dL (32.0-36.5); MCV 94.6 fl (83.0-98.0); MPV 10.7 fl (9.4-12.4); PLATELET COUNT 145 K/uL (150-450); RBC 2.77 M/uL (4.00-6.00); RDW-CV 23.9 % (11.9-14.6); WBC 8.6 K/uL (4.0-11.0)
--- NOTE | 2017-06-14 04:52 | NUR ---
Significant Event:A/Ox3. Afebrile. VSS on RA, patient did request O2 when sleeping. PIV to R)FA accidentally pulled out by patient. L)FA PIV intact with good blood return. Drsg to R)IJ changed x1. R)radial still oozing drsg changed x2. [place] x2 for abdominal pain. Tolerating clear liquids but not sure if patient wants to try regular diet yet. Follow up:Per patient Dialysis today. Continue to monitor bleeding.
[2017-06-14 04:54] LABS: ALBUMIN 2.3 gm/dL (3.5-5.0); ANION GAP 17.1 (10.0-19.0); POTASSIUM 4.1 mMol/L (3.7-5.1); TOTAL BILIRUBIN 6.7 mg/dL (0.0-1.5)
[2017-06-14 04:55] LABS: CALCIUM 7.4 mg/dL (8.5-10.5)
[2017-06-14 04:56] LABS: CREATININE 6.5 mg/dL (0.6-1.3)
[2017-06-14 05:08] LABS: ABSOLUTE NEUTROPHIL CT (ANC) 4.6 K/uL (1.4-9.0); BANDED NEUTROPHIL # 0.9 K/uL (0.0-0.1); BANDED NEUTROPHILS % 10 %; LYMPHOCYTE # 1.2 K/uL (0.8-4.0); LYMPHOCYTE % 14 %; MONOCYTE # 2.5 K/uL (0.0-1.0); SEGMENTED NEUTROPHIL # 3.8 K/uL (1.4-9.0); SEGMENTED NEUTROPHIL % 44 %
--- NOTE | 2017-06-14 13:46 | NUR ---
I did call Mika and left a vm to touch base with pt due to self pay.
--- NOTE | 2017-06-14 15:04 | NUR ---
Introduced self and role of care management to pt. HE lives in [place] by himself but his parents also live here and he has two sons but live with their mother. He states he currently does not work or have insurance but does have [employer] [facility]. HE states it works if there is not a facility within 50 miles. I asked how it did last time he was in and he stated it paid. I did tell him we are not a [facility] facility but will make sure they are notified. I asked if he wanted to be transfered to [place] and he states not not really. WIll continue to follow.
--- NOTE | 2017-06-14 17:39 | NUR ---
Significant Event: A/O x3, cooperative with cares. VSS, SBPs 120s, HRs 60-80s, on room air. 1 tab of [place] given x2 for c/o upper abd pain; relief noted. Ativan given at 1649. Dialysis today, 900 ml removed. Patient continues to ooze from puncture sites; dressing to dialysis catheter changed by dialysis; upon returning to the floor gauze under transparent dressing already saturated. Dressing to R) hand/R) radial site changed x2 this shift. Doctors aware. Patient was in agreement to undergo a MRCP if able to be unaware of what was going on; per radiology patient needs to able to follow directions. Dr. Scott made aware of this et wants patient to be sleepy so not aware but able to follow directions. Radiology et anesthesia made aware. Anesthesia up to visit with patient; patient states doesn't want to do procedure today et would rather wait until tomorrow. Dr. Scott et radiology made aware of situation. Patient states that is scared of going in the MRI tube et not really wanting to do it. Patient is made aware that if refuses MRI may need to be transferred to another facility for further et different testing that we are unable to do here. Up in room ad mayi. Follow up: tunneled dialysis catheter tomorrow; dialysis on Wednesday
[2017-06-14 21:23] LABS: INR - (THERAPEUTIC) 1.32 (0.89-1.05); PROTIME 13.9 SECONDS (9.1-10.7)
[2017-06-15 04:12] LABS: HEMATOCRIT 26.1 % (37.0-53.0); HEMOGLOBIN 8.6 g/dL (12.0-17.0); MCH 31.7 pg (27.0-34.0); MCV 96.3 fl (83.0-98.0); MPV 10.5 fl (9.4-12.4); PLATELET COUNT 157 K/uL (150-450); RBC 2.71 M/uL (4.00-6.00); RDW-CV 24.2 % (11.9-14.6); WBC 7.1 K/uL (4.0-11.0)
--- NOTE | 2017-06-15 04:25 | NUR ---
Significant Event: Patient is alert and oriented. VSS on RA. Dressing to R) IJ changed x1. Dressing to R) radial changed x1. Continues to ooze. Amicar started per MD order. 5g given over one hour, then 8g given over 8 hours. Currently running in L) anterior FA PIV. [place] given for upper middle abdominal pain x2. Patient awake through most of night. Calm and cooperative with cares.
[2017-06-15 04:38] LABS: ALBUMIN 2.4 gm/dL (3.5-5.0); ANION GAP 15.2 (10.0-19.0); CALCIUM 7.7 mg/dL (8.5-10.5); POTASSIUM 4.2 mMol/L (3.7-5.1); TOTAL PROTEIN 6.9 g/dL (6.0-8.4)
[2017-06-15 04:41] LABS: CREATININE 4.4 mg/dL (0.6-1.3); TOTAL BILIRUBIN 5.3 mg/dL (0.0-1.5)
[2017-06-15 05:02] LABS: ABSOLUTE NEUTROPHIL CT (ANC) 4.3 K/uL (1.4-9.0); BANDED NEUTROPHIL # 0.4 K/uL (0.0-0.1); BANDED NEUTROPHILS % 6 %; LYMPHOCYTE # 1.4 K/uL (0.8-4.0); LYMPHOCYTE % 20 %; MONOCYTE # 1.3 K/uL (0.0-1.0); SEGMENTED NEUTROPHIL # 3.8 K/uL (1.4-9.0); SEGMENTED NEUTROPHIL % 54 %
--- NOTE | 2017-06-15 11:18 | NUR ---
A - NUTRITION F/U. GLU 87, BUN/EXCHANGE SPECIALIST 23/4.4, ALB 2.4, LFT'S ELEVATED, PO4 1.4, AMYLASE AND LIPASE ELEVATED. CBW: 92.7 KG, UP 2.3 KG SINCE ADMIT. NO EDEMA. DIET: CLEAR LIQUIDS, TOLERATING. EST NEEDS: 2700 KCALS, 90 GM PROTEIN. D - AT RISK W/ INADEQUATE ORAL INTAKE R/T NPO/CL DIET SINCE ADMISSION AEB DIET ORDER. I - GOAL: INCREASE NUTRIENT ALLOWANCE, PN IF NEEDED. M/E - IF UNABLE TO ADVANCE DIET IN 48 HRS CONSIDER TPN AT 90 ML/HR W/ 250 ML 20% LIPIDS T-TH TO PROVIDE [id number] KCALS, 91 GM PROTEIN. WILL F/U IN 2-3 DAYS.
[2017-06-15 15:34] LABS: CERULOPLASMIN 53 mg/dL (7-220)
--- NOTE | 2017-06-15 16:12 | NUR ---
I did talk with Elisha from [place] just now and gave update. She states they do not have any tele beds today but most likely will tomorrow. She did tell me the [facility] does not cover the hospital at all and if he wished to transfer to them he would have to pay for the transfport because he is not travel elible and also not service connected so will have to pay at some cost to them. Paulina just told me to talk with him tomorrow if he wished to transfer.
--- NOTE | 2017-06-15 18:27 | NUR ---
Significant Event: A/O x3, cooperative with cares. VSS SBPS 100-150s, HRS 70s, on room air. Rating pain 4/10 upon arrival back to the floor from PACU; previously medicated in PACU. MRCP done today; patient did have problems with DBPs 110s while downstairs. Tunneled line placement cancelled for today. Recieved a dose of ddavp. Continues to oozes from procedure sites; dressing to R) wrist changed x1. Up in room ad mayi. Follow up: 1 unit of platelets; dialysis tomorrow
[2017-06-16 03:46] LABS: HEMATOCRIT 24.9 % (37.0-53.0); HEMOGLOBIN 8.1 g/dL (12.0-17.0); MCH 31.4 pg (27.0-34.0); MCHC 32.5 gm/dL (32.0-36.5); MCV 96.5 fl (83.0-98.0); MPV 9.8 fl (9.4-12.4); PLATELET COUNT 162 K/uL (150-450); RBC 2.58 M/uL (4.00-6.00); RDW-CV 24.3 % (11.9-14.6); WBC 5.7 K/uL (4.0-11.0)
[2017-06-16 04:10] LABS: ALBUMIN 2.4 gm/dL (3.5-5.0); ANION GAP 16.2 (10.0-19.0); CALCIUM 8.3 mg/dL (8.5-10.5); POTASSIUM 4.2 mMol/L (3.7-5.1); TOTAL PROTEIN 6.9 g/dL (6.0-8.4)
[2017-06-16 04:12] LABS: CREATININE 6.6 mg/dL (0.6-1.3)
[2017-06-16 04:55] LABS: ABSOLUTE NEUTROPHIL CT (ANC) 3.4 K/uL (1.4-9.0); BANDED NEUTROPHIL # 0.5 K/uL (0.0-0.1); BANDED NEUTROPHILS % 8 %; LYMPHOCYTE # 1.3 K/uL (0.8-4.0); LYMPHOCYTE % 23 %; MONOCYTE # 0.7 K/uL (0.0-1.0); SEGMENTED NEUTROPHIL % 52 %
--- NOTE | 2017-06-16 05:23 | NUR ---
Significant Event: Patient is alert and oriented. Up ad mayi. VSS on RA. C/O pain in middle upper abdomen. [place] given x2 with relief noted. Patient became anxious and requested oxygen because it had "helped calm him down before". 1L O2 started. Patient continued to feel anxious, 1mg ativan given IV. R) radial dressing changed. R) IJ continues to ooze. Dialysis this am. Calm and cooperative with cares.
--- NOTE | 2017-06-16 14:01 | NUR ---
I did talk with pt today and explained I spoke with the [facility] yesterday and his [employer] does not work while in the hospital but they may have a bed today if they call and can go down there but the transport down would not be covered by [place]. HE states he understands but does not wish to transfer. I did tell him I have notified our [employer] and will make sure he has a financial application and he understands. He just wants to get out and go home. WIll continue to follow. He is still acute dialysis.
--- NOTE | 2017-06-16 16:59 | NUR ---
Significant Event: A/O X 3. REGULAR DIET; DENIES PAIN OR NAUSEA. DIALYSIS 1 LITER REMOVED. OFF PCU FLOOR FROM [id number]. PARENTS AT BEDSIDE/ SUPPORTIVE. RT. RADIAL SITE WITH INTACT DRESSING, C/D/I. RT. IJ DIALYSIS CATH DRESSING, C/D/I. ROOM AIR. NO RESP. DISTRESS. Follow up: [facility]. [facility].
--- NOTE | 2017-06-17 04:33 | NUR ---
Significant Event:A/Ox3. Afebrile. HTN tonight 140-170s/90-110s. Patient more anxious than prior nights. Requested ativan x2. Last dose at 0240. I tried to sit and talk with the patient but he was withdrawn and short with answers. R)radial redressed x1. No UOP noted. No other changes with assessments. Follow up:Pending lab work-up. ?Plan of care.
[2017-06-17 04:44] LABS: ALBUMIN 2.3 gm/dL (3.5-5.0); ANION GAP 13.2 (10.0-19.0); CALCIUM 7.9 mg/dL (8.5-10.5); POTASSIUM 4.2 mMol/L (3.7-5.1)
[2017-06-17 04:47] LABS: CREATININE 4.6 mg/dL (0.6-1.3)
[2017-06-17 07:36] LABS: BASOPHIL % 0.5 %; EOSINOPHIL # 0.2 K/uL (0.0-0.5); EOSINOPHIL % 2.5 %; HEMATOCRIT 24.3 % (37.0-53.0); HEMOGLOBIN 8.2 g/dL (12.0-17.0); IMMATURE GRANULOCYTE # 0.3 K/uL (0.0-0.3); LYMPHOCYTE # 0.8 K/uL (0.8-4.0); LYMPHOCYTE % 13.5 %; MCH 32.3 pg (27.0-34.0); MCHC 33.7 gm/dL (32.0-36.5); MCV 95.7 fl (83.0-98.0); MONOCYTE # 1.3 K/uL (0.0-1.0); MONOCYTE % 21.8 %; MPV 10.6 fl (9.4-12.4); NEUTROPHIL # (ANC) 3.4 K/uL (1.4-9.0); NEUTROPHIL % 56.7 %; NRBC % 1.2 /100WBC (0-0.00); PLATELET COUNT 172 K/uL (150-450); RBC 2.54 M/uL (4.00-6.00); RDW-CV 24.3 % (11.9-14.6)
--- NOTE | 2017-06-17 12:19 | NUR ---
A - PT DROWSY. GLU 89, BUN/RECORD CENTER SPECIALIST 17/4.6, ALB 2.3, PO4 1.0. DIALYSIS YESTERDAY. PT STATES APPETITE IS GOOD, DID NOT HAVE BF, HE DOESN'T TYPICALLY EAT BF AT HOME. HUNGRY FOR LUNCH, PHONED IN MEAL FOR HIM. CONTS TO BE RECEPTIVE TO ENSURE AND ENSURE CLEAR. DIET: REGULAR W/ ENSURE AT BF, ENSURE CLEAR L/D. D - AT RISK INADEQUATE ORAL INTAKE R/T PROLONGED NPO/CL STATUS PRIOR TO REGULAR DIET. I - GOAL: 50-75% INTAKE BY DISMISSAL. M/E - WILL DC ENSURE AT BF PT NOT LIKELY TO ORDER THIS MEAL AND SEND AT LUNCH. WILL SEND ENSURE CLEAR W/ DINNER. WILL CONT TO MONITOR INTAKE AND ASSIST NEEDED. F/U IN 2-4 DAYS.
--- NOTE | 2017-06-17 15:20 | NUR ---
Significant Event: A/O X 3. AT TIMES WILL MUMBLE IN A SOFT VOICE AND UNABLE TO UNDERSTAND. PT. DIDN'T FEEL GOOD TODAY. ELEVATED B/P'S. INITIATED LABETALOL GTT AT 1 MG/MIN. SBP TO BE 150-160'S. PT. ON ANTIBIOTICS. HAS A LT. SIDED PNEUMONIA. AFEBRILE. CRET 4.6. GFR 14. ROOM AIR, SATS 93%. NO RESP. DISTRESS NOTED. Follow up: CONT. TO [facility]. CONT. ON DIALYSIS PER DR. MESA ORDERS.
--- NOTE | 2017-06-17 15:40 | NUR ---
I got a call from Zaira with the [facility] wanting an update. She states sounds a little unstable but asked if he wished to transfer and I explained I spoke with him yesterday and he does not want to. She stated she will take him off the list.
[2017-06-17 18:20] LABS: BILIRUBIN URINE NEGATIVE (NEGATIVE); BLOOD URINE 150 /UL (NEGATIVE); COLOR URINE YELLOW (YELLOW); GLUCOSE URINE 50 mg/dL (NEGATIVE); KETONE URINE NEGATIVE (NEGATIVE); LEUKOCYTES URINE NEGATIVE /UL (NEGATIVE); NITRITE URINE NEGATIVE (NEGATIVE); PROTEIN URINE 100 mg/dL (NEGATIVE); SPEC GRAVITY URINE 1.015 (1.003-1.035); TURBIDITY URINE 1+ (CLEAR); UROBILINOGEN URINE NORMAL (NORMAL)
[2017-06-17 18:26] LABS: EPITHELIAL URINE 0-2 #/HPF (NEGATIVE); WBC URINE 0-2 #/HPF (NEGATIVE)
[2017-06-17 18:27] LABS: AMORPHOUS URINE 1+ (NEGATIVE); BACTERIA URINE RARE (NEGATIVE)
[2017-06-18 03:51] LABS: HEMATOCRIT 24.7 % (37.0-53.0); HEMOGLOBIN 8.3 g/dL (12.0-17.0); MCH 32.4 pg (27.0-34.0); MCHC 33.6 gm/dL (32.0-36.5); MCV 96.5 fl (83.0-98.0); MPV 10.6 fl (9.4-12.4); PLATELET COUNT 176 K/uL (150-450); RBC 2.56 M/uL (4.00-6.00); RDW-CV 24.7 % (11.9-14.6); WBC 4.9 K/uL (4.0-11.0)
[2017-06-18 04:12] LABS: ALBUMIN 2.2 gm/dL (3.5-5.0); ANION GAP 13.9 (10.0-19.0); CALCIUM 8.1 mg/dL (8.5-10.5); POTASSIUM 3.9 mMol/L (3.7-5.1); TOTAL PROTEIN 6.5 g/dL (6.0-8.4)
[2017-06-18 04:15] LABS: CREATININE 6.8 mg/dL (0.6-1.3); TOTAL BILIRUBIN 2.3 mg/dL (0.0-1.5)
[2017-06-18 05:23] LABS: ABSOLUTE NEUTROPHIL CT (ANC) 2.8 K/uL (1.4-9.0); LYMPHOCYTE % 21 %; MONOCYTE # 0.8 K/uL (0.0-1.0); SEGMENTED NEUTROPHIL # 2.8 K/uL (1.4-9.0); SEGMENTED NEUTROPHIL % 57 %
--- NOTE | 2017-06-18 06:34 | NUR ---
Significant Event: PATIENT AFEBRILE. VSS OTHER THAN BLOOD PRESSURES. PATIENT ON LABETALOL DRIP FOR HIGH BLOOD PRESSURES. PATIENT WAS ON 1MG/MIN AND AT 0245 WAS DECREASED TO 0.5 MG/MIN. PATIENT REMAINS ON THIS RATE. BLOOD PRESSURES ON ASESSMENTS HAVE BEEN 164-144. PATIENT HAD ATIVAN FOR ANXIETY LAST AT 2340. NORCO X1 FOR PAIN. SEE EMAR. STANDBY ASSIST. Follow up:
--- NOTE | 2017-06-18 16:38 | NUR ---
SIGNIFICANT EVENT: PT IS ALERT AND ORIENTED X3. SPENT 4HRS IN DIALYSIS THIS AM. USING IJ FOR DIALYSIS. 2 LITERS OF FLUID WERE REMOVED THIS AM. PLAN IS TO HAVE DIALYSIS AGAIN WEDNESDAY. PT. WENT TO DIALYSIS WITH LABATOLOL DRIP DUE TO HIGH PRESSURES, BUT WAS SHUT OFF AT 1300 WITH STABLE SBP IN THE 140'S. HR 70-80. O2 90'S ROOM AIR. SBP WAS 140-150'S THIS SHIFT. PATIENT DOES HAVE LOW PLT AND HAS A PREVIOUS BRUISE TO HIS R) ARM. 1 TAB NORCO IS BEING GIVEN EVERY 4 HRS PRN AND IV 1MG MORPHINE WAS GIVEN AT 1500 FOR BREAKTHROUGH PAIN. PATIENT DOES EXPRESS SOME ANXIETY AND HAS PRN ANTIVAN ORDERED. VOIDED ONCE THIS SHIFT AROUND 0730. HAS NOT VOIDED SINCE. NO BM. COREG WAS INCREASED TO 25MG THIS SHIFT FOR BETTER BP CONTROL. FOLLOW UP: MONITOR IJ DRESSING FOR OOZING. PLAN IS TO GO HOME WITH A LIFE VEST DUE TO LOW EF. CONTINUE PLAN OF CARE.
[2017-06-19 04:44] LABS: ALBUMIN 2.3 gm/dL (3.5-5.0); ANION GAP 13.5 (10.0-19.0); CALCIUM 8.6 mg/dL (8.5-10.5); PHOSPHORUS 2.4 mg/dL (2.5-4.9); POTASSIUM 4.5 mMol/L (3.7-5.1)
[2017-06-19 04:45] LABS: CREATININE 4.8 mg/dL (0.6-1.3)
--- NOTE | 2017-06-19 05:58 | NUR ---
Significant Event: A/O x3. Afebrile. [place] given x2. SBP 140-170s. HR 70s. Labetolol gtt restarted @ 1mg/min. After gtt restarted, SBP 170-180s. Titrated gtt to 2mg/min. Up standby assist. Cooperative with cares. Follow up: Continue to monitor per plan of care.
--- NOTE | 2017-06-19 14:58 | NUR ---
Significant Event: Patient has rested comfortably in bed, up to bathroom independently. Ambulated in hallway X1, tolerated well, goal is to ambulate X3 total for the day. VSS, BP down to 130/90's. Dr. Scott did increase amlodipine to BID. Per Dr. Dwyer, titrate labetolol down but do not DC. Per Dr. Sam, patient will have antibiotics dc'd after completing them tomorrow 06/19/17. No new orders from Dr. Calderon, plan is to dialyze Wednesday and patient was told Dr. Harry would let him know the plan for tunneled HD cath then. [place] 1 tab given q4h for abdominal pain, good control there. Very little urine output, as of this report 100+dribbles. He is having loose BMs. Very pleasant and appreciative of care. Follow up: pain, I/O
[2017-06-20 04:11] LABS: EOSINOPHIL # 0.1 K/uL (0.0-0.5); EOSINOPHIL % 3.3 %; HEMATOCRIT 24.8 % (37.0-53.0); HEMOGLOBIN 8.1 g/dL (12.0-17.0); IMMATURE GRANULOCYTE % 0.3 %; LYMPHOCYTE # 0.9 K/uL (0.8-4.0); LYMPHOCYTE % 22.4 %; MCH 31.9 pg (27.0-34.0); MCHC 32.7 gm/dL (32.0-36.5); MCV 97.6 fl (83.0-98.0); MONOCYTE # 0.7 K/uL (0.0-1.0); MONOCYTE % 17.8 %; MPV 10.3 fl (9.4-12.4); NEUTROPHIL # (ANC) 2.2 K/uL (1.4-9.0); NEUTROPHIL % 55.2 %; NRBC % 0 /100WBC (0-0.00); PLATELET COUNT 148 K/uL (150-450); RBC 2.54 M/uL (4.00-6.00); RDW-CV 24.3 % (11.9-14.6); WBC 3.9 K/uL (4.0-11.0)
[2017-06-20 04:29] LABS: ALBUMIN 2.3 gm/dL (3.5-5.0); ANION GAP 13.5 (10.0-19.0); CALCIUM 8.8 mg/dL (8.5-10.5); POTASSIUM 4.5 mMol/L (3.7-5.1); TOTAL BILIRUBIN 1.9 mg/dL (0.0-1.5); TOTAL PROTEIN 6.5 g/dL (6.0-8.4)
--- NOTE | 2017-06-20 04:43 | NUR ---
Significant Event: A/0X3. UP AB BENNIE IN ROOM. TURNS SELF. AFEBRILE. VSS ON RA. NORCO GIVEN X2 FOR ABD PAIN. PATIENT WAS ABLE TO FIND RELIEF OFF AND ON AND REST COMFORTABLY. IV TO L) FA WITH LABETOLOL GTT RUNNING AT 1 MG/MIN. SBP 130-140. IV TO L) HAND SL. R) IJ SL. VOIDED 175 MLS. NO BM THIS SHIFT. Follow up: CONTINUE WITH PLAN OF CARE.
--- NOTE | 2017-06-20 19:00 | NUR ---
I HAVE REVIEWED THE CHARTING OF XIN (ORIENTEE FOR THIS SHIFT) AND I AGREE WITH IT.
--- NOTE | 2017-06-20 19:26 | NUR ---
SIGNIFICANT EVENT: PATIENT IS ALERT AND ORIENTED. PLEASANT, CALM, AND COOPERATIVE WITH CARES. LABATOLOL DRIP D/C TODAY BY DR. HAYES. BUMEX 4MG NOW GIVEN AND NEW ORDER FOR HYDRALAZINE 25MG ORDERED. NEED TO CALL DR. HAYES IF SBP >170. HOLD HYDRALAZINE IF SBP <110. HR 60-70'S. O2 >90% ON RA. SBP 120-150'S THIS SHIFT. IJ DRESSING CHANGED X2 THIS SHIFT FOR NEW BLOOD ON DRESSING. PATIENT SOMETIMES PICKS AT DRESSING BECAUSE OF IRRITATION ON NECK. L) WRIST IV SITE REMOVED ACCIDENTALY BY PATIENT ON SIDE OF BED. IV L) POSTERIOR FOREARM STILL IN PLACE, FLUSHES WELL. REFUSED CHG BATH THIS SHIFT BUT WANTS ONE TOMORROW. REFUSES INCENTIVE SPIROMETER AND AMBULATION. UP AD BENNIE. PATIENT NEEDS TO BE NPO PAST MIDNIGHT TONIGHT FOR POSSIBLE TUNNELING OF IJ IN THE AM. DIALYSIS IN THE MORNING. FOLLOW UP: MONITOR IJ DRESSING FOR BLEEDING. NPO AFTER MD. CONTINUE PLAN OF CARE.
--- NOTE | 2017-06-21 03:22 | NUR ---
Significant Event: Patient is alert and oriented x3. PERRLA. Follows commands. Up ad mayi in room. Slightly jaundice. Lungs are clear and slightly diminished on RA. NSR. Call Dr. Calderon if SBP >170. SBP this shift- 161-176. Scheduled medications given to reduced SBP. HR 74-78. [place] 1 Tab given x2 for abd pain- relief noted. BSA. UO- 50ml. Right IJ- SL. Left FA PIV- sluggish. Right FA- SL. No BM this shift. Patient refuses to take CHD shower until he speaks to MD. Pleasant and cooperative with cares. Follow up: Procedure and Dialysis today
[2017-06-21 04:04] LABS: BASOPHIL # 0.1 K/uL (0.0-0.2); BASOPHIL % 1.2 %; EOSINOPHIL # 0.1 K/uL (0.0-0.5); HEMATOCRIT 25.5 % (37.0-53.0); HEMOGLOBIN 8.2 g/dL (12.0-17.0); IMMATURE GRANULOCYTE % 0.5 %; LYMPHOCYTE # 0.8 K/uL (0.8-4.0); LYMPHOCYTE % 17.5 %; MCH 31.7 pg (27.0-34.0); MCHC 32.2 gm/dL (32.0-36.5); MCV 98.5 fl (83.0-98.0); MONOCYTE # 0.7 K/uL (0.0-1.0); MONOCYTE % 15.4 %; MPV 10.1 fl (9.4-12.4); NEUTROPHIL # (ANC) 2.7 K/uL (1.4-9.0); NEUTROPHIL % 62.4 %; NRBC % 0 /100WBC (0-0.00); PLATELET COUNT 127 K/uL (150-450); RBC 2.59 M/uL (4.00-6.00); RDW-CV 23.9 % (11.9-14.6); WBC 4.3 K/uL (4.0-11.0)
[2017-06-21 04:18] LABS: ALBUMIN 2.3 gm/dL (3.5-5.0); ANION GAP 15.8 (10.0-19.0); CALCIUM 8.9 mg/dL (8.5-10.5); PHOSPHORUS 4.2 mg/dL (2.5-4.9); POTASSIUM 4.8 mMol/L (3.7-5.1)
[2017-06-21 04:29] LABS: INR - (THERAPEUTIC) 1.12 (0.92-1.07); PROTIME 11.8 SECONDS (9.8-11.4); PTT 29 SECONDS (25-32)
--- NOTE | 2017-06-21 13:36 | NUR ---
PT MOVED TO NO RISK W/ INTAKE USUALLY 75-100%. WILL CONT SUPPLEMENTS TO MAINTAIN NUTRITION STATUS. F/U IN 7-10 DAYS.
--- NOTE | 2017-06-21 20:03 | NUR ---
Significant Event: A/O x3, cooperative with cares. VSS, SBPs 150-160s, DBPs 100s, HRs 70s, on room air. 1 tab of Robert given x2, last at 1650, for c/o abd pain; relief noted. Dialysis today; 2 liters removed; will have dialysis again on Wednesday. Upon arrival back from dialysis dressing to R) IJ dialysis line was C/D/I; at approximately 1825 patient called d/t bleeding from line. Patient states that he's unsure what happend et that he was possible sleeping on that side. Dressing reinforced; continued to ooze. Charge nurse notified et instructed nurse to call on-call dialyis nurse. On-call dialysis nurse notified et instructed primary nurse to change dressing over site. If site continued to ooze place surge cell over site et if line appear as if it had been displaced to notify Dr. Harry. Follow up: tunneled line placement tomorrow afternoon, permits not signed.
[2017-06-22 05:36] LABS: HEMATOCRIT 24.5 % (37.0-53.0); HEMOGLOBIN 8.3 g/dL (12.0-17.0); MCH 32.9 pg (27.0-34.0); MCHC 33.9 gm/dL (32.0-36.5); MCV 97.2 fl (83.0-98.0); MPV 10.1 fl (9.4-12.4); RBC 2.52 M/uL (4.00-6.00); RDW-CV 23.2 % (11.9-14.6); WBC 3.4 K/uL (4.0-11.0)
[2017-06-22 05:49] LABS: INR - (THERAPEUTIC) 1.14 (0.92-1.07)
[2017-06-22 05:51] LABS: ALBUMIN 2.5 gm/dL (3.5-5.0); ANION GAP 13.2 (10.0-19.0); CALCIUM 8.8 mg/dL (8.5-10.5); PHOSPHORUS 3.5 mg/dL (2.5-4.9); POTASSIUM 4.2 mMol/L (3.7-5.1)
--- NOTE | 2017-06-22 07:19 | NUR ---
Significant Event: Pt A&Ox3, VELAZQUEZ, FAC, calm and cooperative. VSS, SBP 130-150s, HR 70-80s, Tmax 99.2. Up ad mayi. NPO at midnight. Dialysis catheter dressing changed tonight. Follow up: Tunneled dialysis catheter planned for today.
--- NOTE | 2017-06-22 14:36 | NUR ---
I got a call from Tri Aceves APRN around 1100 regarding pt and sending his information up to [facility] and will plan an acute contract. I also then got a call from Esthela with dialysis stating she did send the information. I did tell her that he is self pay along with the [facility] and uncertain if they do acute contract or not and he will also need a life vest on discharge as well. I did inform my extra gang supervisor Ivelisse regarding this and she stated they can send the contract on to her. I did call the [facility] and spoke with Shan and he guided me to his career technical supervisor Livia Vinay [phone] fax [phone] and his pcp is Michael PE[facility]A in [place]. I did speak with her at 1400 and she is unsure about the dialysis and will check into it and I did give her phone numbers for the center and for the life vest she took Christo's number and thinks they have to go thru a separate part of the [facility]. She did tell me should would do some research and get back to me. I then got a call from Maribel at [facility] admissions [phone] and they have a chair time for 3:15 pm - and he can start once the financial piece is done with the VA. Maribel stated they need an auth number and they do not work with the VA it is the sending facility, they only do private insurance and medicare. I will call Livia back and let her know this as well. WIll continue to follow.
--- NOTE | 2017-06-22 14:49 | NUR ---
Social visit with the pt today. I explained he is getting closer to getting discharged but need to figure out the financial side of the dialysis potion and sounds like will need a life vest as well. I did speak to Kalani again with [facility] to see if they have touched base with him and what the next step would be and she will let me know. Pt plans on home and he gets his meds from the [facility] and he states he does not need any information on his drinking or any counseling as well. I asked about transportation and his parents live in town and can help him out with this as well. At this time will continue to follow.
--- NOTE | 2017-06-22 16:10 | NUR ---
I did call and updated Livia at the VA and she stated they think they only do chronic contracts not acute but have a call out to someone else to make sure. She needed additional information faxed for the life vest as well, which I will. I did touch base with Faisal STOKES and Maryann STOKES and she stated Christo is aware of the life vest just need to call prior to pt being discharged. I will most likely give him a call tomorrow once a I hear from the VA so he can continue working with the VA for the financial portion of it.
--- NOTE | 2017-06-22 20:06 | NUR ---
Significant Event: A/O x3, cooperative with cares. VSS, SBPs 150-170s, HRs 70s, on room air. No c/o pain. Tunneled dialysis line placed today; dressing to lateral R) neck, shadow drainage present, outlined. Up ad mayi in room. Follow up: needs life vest upon dismissal; dialysis tomorrow
--- NOTE | 2017-06-23 05:50 | NUR ---
Significant Event: Pt A&Ox3, [place], FAC, calm and cooperative. VSS, SBP 140-150s, HR 70-80s, Tmax 98.5. Up ad mayi. Dialysis catheter dressing changed tonight and reinforced with gauze/tape. Old IJ dialysis site is dressed with gauze and tegaderm. Follow up: Dialysis planned for today. Waiting on chair before d/c. Lifevest ordered, need fitting before d/c.
[2017-06-23 06:41] LABS: ALBUMIN 2.5 gm/dL (3.5-5.0); ANION GAP 15.2 (10.0-19.0); CALCIUM 8.9 mg/dL (8.5-10.5); CREATININE 8.3 mg/dL (0.6-1.3); PHOSPHORUS 4.7 mg/dL (2.5-4.9); POTASSIUM 4.2 mMol/L (3.7-5.1)
[2017-06-23 10:03] LABS: BASOPHIL # 0.1 K/uL (0.0-0.2); BASOPHIL % 2.1 %; EOSINOPHIL # 0.1 K/uL (0.0-0.5); EOSINOPHIL % 2.6 %; HEMATOCRIT 22.8 % (37.0-53.0); LYMPHOCYTE # 0.5 K/uL (0.8-4.0); LYMPHOCYTE % 13.1 %; MCH 32.1 pg (27.0-34.0); MCHC 33.3 gm/dL (32.0-36.5); MCV 96.2 fl (83.0-98.0); MONOCYTE # 0.6 K/uL (0.0-1.0); MPV 10.3 fl (9.4-12.4); NEUTROPHIL # (ANC) 2.5 K/uL (1.4-9.0); NEUTROPHIL % 65.2 %; NRBC % 0 /100WBC (0-0.00); PLATELET COUNT 109 K/uL (150-450); RBC 2.37 M/uL (4.00-6.00); WBC 3.9 K/uL (4.0-11.0)
[2017-06-23 10:04] LABS: HEMOGLOBIN 7.6 g/dL (12.0-17.0)
--- NOTE | 2017-06-23 13:13 | NUR ---
I spoke with Lviia again who spoke with Ran on the phone and she stated that the VA will not cover acute dialysis but if he wanted to go to [place] and go as outpt he could but he declined due to home here, kids, financial issues etc. She stated the life vest comes from [employer] and cardio will need to order so she will see what needs to be done. I did give her Christo number yesterday to be in contact as well. I then called Christo with [employer] and he is working on this and his hoping to get it approved 100% and is aware need to go thru [employer]. I then called my candle making supervisor and she will need the contract for acute dialysis sent to her so she can forward on to Yana Mishra. I then called Maribel with [facility] and left her a vm to start the paperwork and send on to my candle making supervisor. I then spoke with pt and updated him on what is happening and he stated a [place] was up yesterday evening stating he was working on the life vest. I told him I needed to get the acute approved and he will go to [facility] T-T-Sat 1200 and he is aware. I asked about his meds and he does have some and I will review also with his personal caregiver Livia. I am hoping he may get out tomorrow pending how long he can go before dialysis. The assistant basketball coach stated they have him starting on Wednesday. I stated I have not got the information faxed yet but bet I will when the contract is signed. I then called Livia back again and udpated her on the time for dialysis and also Christo with [employer] is working on that so she can be in touch with him or just hang back and let him do it. I reviewed meds with her and he has been taking prilosec and some of the bp meds and a cholesterol med. I did review and the rest are all $4 meds at [facility] if needed and did tell her they started Lexapro. WIll continue to follow.
--- NOTE | 2017-06-23 19:26 | NUR ---
Significant Event: A/O X 3. PAIN TO RIGHT CHEST DIALYSIS CATH SITE. PRN PERCOCET FOR PAIN MANAGEMENT. TAKES MEDS WHOLE. REGULAR DIET. UP AD BENNIE. VOID X 2 PER BATHROOM THIS SHIFT. DIALYSIS THIS SHIFT. DSG TO DIALYSIS CATH SITE CHANGED PER DIALYSIS NURSE THIS AM. CONTINUED TO HAVE BLEEDING AND DDAVP PER IV ADMINISTERED. PLAN- DISCHARGE TO HOME WITH LIFE VEST AND OUTPATIENT DIALYSIS AT [facility] ON . CBC AND RENAL IN AM.
--- NOTE | 2017-06-24 05:10 | NUR ---
A&Ox3. Still some pain noted at dialysis site. 03/03. Percocet 2 tabs given as needed. Up ad mayi. Large bruise to R) arm. VSS on R/A. Waiting to be fitted for life vest. Some bleeding noted at dialysis site. Dressing intact. IV to R) forearm. Set up with a chair to have dialysis T-Thurs upon D/C.
[2017-06-24 06:19] LABS: MCH 32.9 pg (27.0-34.0); MCHC 33.3 gm/dL (32.0-36.5); MCV 98.6 fl (83.0-98.0); MPV 10.8 fl (9.4-12.4); PLATELET COUNT 98 K/uL (150-450); RBC 2.13 M/uL (4.00-6.00); RDW-CV 23.7 % (11.9-14.6)
[2017-06-24 06:34] LABS: ALBUMIN 2.6 gm/dL (3.5-5.0); ANION GAP 13.3 (10.0-19.0); CALCIUM 8.6 mg/dL (8.5-10.5); PHOSPHORUS 3.4 mg/dL (2.5-4.9); POTASSIUM 4.3 mMol/L (3.7-5.1)
[2017-06-24 06:36] LABS: CREATININE 5.2 mg/dL (0.6-1.3)
[2017-06-24 07:15] LABS: ABSOLUTE NEUTROPHIL CT (ANC) 1.8 K/uL (1.4-9.0); BANDED NEUTROPHILS % 1 %; LYMPHOCYTE # 0.7 K/uL (0.8-4.0); LYMPHOCYTE % 22 %; MONOCYTE # 0.4 K/uL (0.0-1.0); SEGMENTED NEUTROPHIL # 1.8 K/uL (1.4-9.0); SEGMENTED NEUTROPHIL % 59 %
--- NOTE | 2017-06-24 14:08 | NUR ---
I called this am and spoke with Maribel at [facility] explaining my supervisor lime has not got the contract and she states all they do is email. I asked if she could do this again because pt is ready to go home and she stated it is in the financial teams hands. I asked for a phone number and she stated there is not one and will just need to wait. I updated Ivelisse Quiles and will try back again and ask for her supervisor lime.
--- NOTE | 2017-06-24 14:10 | NUR ---
I spoke with pt and explained just waiting on the contract from [email or web address] for my supervisor contact and service clerks to sign and can get out today. He states really tomorrow works better and would like it better even though I offerred a taxi voucher because his dad left town to [place] and will not be back till late ton. I also stated it depends on his dialysis as well because he will need to get on the -wed schedule. I then called January and they plan on running a short one with him tomorrow and then hopefully get up to [place] on Wednesday because they are expecting him. WIll continue to follow.
--- NOTE | 2017-06-24 14:28 | NUR ---
I called up to Kristine Mckenna and Anahi is in a meeting so Yahaira is going to call around and see what is going on. I did call Mary in [place] [phone] and she is not aware of any contract and has not drawn up one and gave me Lacy number [phone]. WIll continue to follow and assist as needed.
--- NOTE | 2017-06-24 17:07 | NUR ---
Significant Event: A/O X 3. UP AD BENNIE IN ROOM. PERCOCET FOR PAIN CONTROL. MOSTLY FROM RT. NECK (OLD LINE). AND RT. SUBCLAVIAN SITES. TENDER IN RT. ABD. QUAD. AFEBRILE. HR SR IN 60-80'S. SATS 95% ON ROOM AIR. APPETITE MUCH BETTER. DENIES NAUSEA. GIVEN IV BUMEX. PT. HAS VOIDED X 2, DARK [place]ES[place] URINE. Follow up: POSSIBLE DISM. TOMORROW. WILL NEED LIFE VEST BEFORE DISM. PT. TO HAVE DIALSIS IN A.M.
[2017-06-25 04:04] LABS: ALBUMIN 2.7 gm/dL (3.5-5.0); ANION GAP 12.5 (10.0-19.0); CALCIUM 8.8 mg/dL (8.5-10.5); POTASSIUM 4.5 mMol/L (3.7-5.1)
[2017-06-25 04:07] LABS: CREATININE 7.7 mg/dL (0.6-1.3)
--- NOTE | 2017-06-25 05:08 | NUR ---
A&Ox3. Independent. Lungs clear/dim on RA. Oliguria. Dialysis here today. Home after dialysis wth [employer]. Hydralazine 2200 dose not given, SPB 120s-130s. HR 70s-80s. Dressing to previous R) IJ c/d/i. Percocet given at 0315. Last BM 06/24/17.
[2017-06-25 07:14] LABS: BASOPHIL # 0.1 K/uL (0.0-0.2); BASOPHIL % 1.1 %; EOSINOPHIL # 0.1 K/uL (0.0-0.5); EOSINOPHIL % 2.6 %; HEMATOCRIT 21.9 % (37.0-53.0); IMMATURE GRANULOCYTE % 0.4 %; LYMPHOCYTE % 22.1 %; MCH 32.7 pg (27.0-34.0); MCHC 32.9 gm/dL (32.0-36.5); MCV 99.5 fl (83.0-98.0); MONOCYTE # 0.7 K/uL (0.0-1.0); MONOCYTE % 15.3 %; MPV 10.9 fl (9.4-12.4); NEUTROPHIL # (ANC) 2.7 K/uL (1.4-9.0); NEUTROPHIL % 58.5 %; NRBC % 0 /100WBC (0-0.00); PLATELET COUNT 116 K/uL (150-450); RDW-CV 23.6 % (11.9-14.6); WBC 4.6 K/uL (4.0-11.0)
[2017-06-25 07:15] LABS: HEMOGLOBIN 7.2 g/dL (12.0-17.0)
[2017-06-25] MEDS ORDERED: NORVASC5 MG PO (16:24)
[2017-06-25] MEDS ORDERED: COREG25 MG PO (16:27)
[2017-06-25] MEDS ORDERED: LEXAPRO10 MG PO (16:28)
[2017-06-25] MEDS ORDERED: APRESOLINE25 MG PO (16:29)
[2017-06-25] MEDS ORDERED: PRINIVIL (ZESTRI5 MG PO (16:30)
[2017-06-25] MEDS ORDERED: PROTONIX40 MG PO (16:31)
[2017-06-25] MEDS ORDERED: EPOGEN20000 UNIT SUB-Q (16:35)
[2017-06-25] MEDS ORDERED: PERCOCET 5-3251 EACH PO (16:36)
--- NOTE | 2017-06-25 16:38 | NUR ---
This am my supervisor electric Ivelisse Quiles signed the acute care contract. I did let the dialysis nurses know and per January he is ready to start tomorrow at 1200. I also called up and spoke with Anahi at [facility] and they are ready for him. I called his nurse this am [facility] as well and stated he can go from dialysis standpoint. She stated we are just waiting on the life vest approval. I then spoke with Asas around 1600 and she stated he is approved and someone will be up to fit him and then he can go home. Per pt he told me his dad will get him and also take him to dialysis. WIll assist as needed.
--- NOTE | 2017-06-25 17:03 | NUR ---
Significant Event: A&O. VSS, AFEBRILE, ROOM AIR. UP AD BENNIE. DIALYSIS TODAY. PERCOCET Q4 HOURS FOR R) SHOULDER PAIN NEAR DIALYSIS LINE. Follow up: HOME TONIGHT AFTER LIFE VEST INSTRUCTIONS COMPLETE
--- NOTE | 2017-06-25 18:44 | NUR ---
PT DISCHARGED TO HOME WITH LIFE VEST. DISCHARGE INSTRUCTIONS DISCUSSED, VERBALIZED UNDERSTANDING. BELONGINGS WITH PT. ESCORTED TO VEHICLE, FATHER TO TRANSPORT TO HOME.
== END 2017-06-25 17:55 | disposition disaster alternative care site (69) | DRG 682 ==
LOC: GMED 18:41 → GPCU 22:01
PROVIDERS: Emergency Medicine; Family Medicine; Internal Medicine Gastroenterology; Internal Medicine Hematology & Oncology; Internal Medicine Nephrology; Radiology Diagnostic Radiology; ADMIT Family Medicine
PROC: 05HM33Z Insertion of Infusion Device into Right Internal Jugular Vein, Percutaneous Approach (ICD-10-PCS; principal; 2017-06-11)
PROC: B216YZZ Fluoroscopy of Right and Left Heart using Other Contrast (ICD-10-PCS; principal; 2017-06-11)
PROC: 4A023N7 Measurement of Cardiac Sampling and Pressure, Left Heart, Percutaneous Approach (ICD-10-PCS; principal; 2017-06-11)
PROC: 5A1D60Z (ICD-10-PCS; principal; 2017-06-11)
PROC: 30243N1 Transfusion of Nonautologous Red Blood Cells into Central Vein, Percutaneous Approach (ICD-10-PCS; 2017-06-12)
DX: N17.0 Acute kidney failure with tubular necrosis (principal); K72.00 Acute and subacute hepatic failure without coma; I21.4 Non-ST elevation (NSTEMI) myocardial infarction; I50.43 Acute on chronic combined systolic (congestive) and diastolic (congestive) heart failure; J18.9 Pneumonia, unspecified organism; D68.9 Coagulation defect, unspecified; I11.0 Hypertensive heart disease with heart failure; E87.1 Hypo-osmolality and hyponatremia; M62.82 Rhabdomyolysis; D62 Acute posthemorrhagic anemia; R73.03 Prediabetes; K21.9 Gastro-esophageal reflux disease without esophagitis; F10.10 Alcohol abuse, uncomplicated; F17.220 Nicotine dependence, chewing tobacco, uncomplicated; E78.1 Pure hyperglyceridemia; E87.6 Hypokalemia; I95.9 Hypotension, unspecified; F41.0 Panic disorder [episodic paroxysmal anxiety]; E66.3 Overweight; Z68.27 Body mass index [BMI] 27.0-27.9, adult; K70.0 Alcoholic fatty liver; G40.409 Other generalized epilepsy and epileptic syndromes, not intractable, without status epilepticus; I16.0 Hypertensive urgency
CPT/HCPCS: A9270; A9539; A9540; C1750; C1769; C1887; C1894; C9113; G0480; J0360; J1642; J1644; J2001; J2060; J2185; J2250; J2270; J2405; J2543; J2597; J3010; J3411; J3480; J3490; J7030; J7040; J7050; P9016; P9035; P9047; Q4081

== ENCOUNTER → 2017-07-09 | Outpatient (CLI) | payer OTHER ==
[~2017-07-09] MED LIST changes: +APRESOLINE25 MG PO; +COREG25 MG PO; +EPOGEN20000 UNIT SUB-Q; +LEXAPRO10 MG PO; +NORVASC5 MG PO; +PERCOCET 5-3251 EACH PO; +PRINIVIL (ZESTRI5 MG PO; +PROTONIX40 MG PO; +VOLTAREN50 MG PO
== END ==
LOC: LNHI 16:39
DX: I12.0 Hypertensive chronic kidney disease with stage 5 chronic kidney disease or end stage renal disease (principal); I50.22 Chronic systolic (congestive) heart failure; F10.20 Alcohol dependence, uncomplicated; N18.5 Chronic kidney disease, stage 5